=== PATIENT | male | born 1945 | race Caucasian/White ===

== ENCOUNTER 2016-08-28 16:51 | Emergency (ER) | payer BC, MEDICARE ==
[2016-08-28] MEDS ORDERED: MORPHINE SULFATE 4 MG INJ IV ONE (17:15)
[2016-08-28] MEDS ORDERED: Sodium Chloride 0.9% 1000 ML 1,000 ML IV SCH (17:15)
[2016-08-28] MEDS ORDERED: Zofran 4 MG/2 ML VIAL IV ONE (17:15)
--- NOTE | 2016-08-28 17:21 | ERPHSYRPT ---
- History of Present Illness Time Seen by Provider: 08/28/16 17:05 Historian: patient Exam Limitations: no limitations Patient Subjective Stated Complaint: rt groin pain/ vomiting Triage Nursing Assessment: rt groin pain and 'bulge' for weeks. c/o rt groin bulge bigger since vomiting over the past couple of days. c/o mis abd 'burning' vomiting multiple times today. no fever. no problems with urination. large ' hernia type' area to rt groin Physician History: 70 y/o male with history of colorectal CA comes to the ER with left groin pain for the past 3 weeks. Pt mentions the pain has gotten worst with multiple episodes of nausea and vomiting. Pt also reports the lump in the groin has gotten bigger. Pt describes the pain as sharp, constant, 6/10, with radiation to mid abdomen and pt has not taken any pain meds. Pt denies any fever, chills, diarrhea, constipation or bloody stools. Timing/Duration: week(s) Activities at Onset: none Quality: sharpness Abdominal Pain Onset Location: other (left groin) Pain Radiation: periumbilical Severity of Pain-Max: moderate Severity of Pain-Current: moderate Modifying Factors: Improves With: nothing Associated Symptoms: nausea, vomiting Allergies/Adverse Reactions: Penicillins Allergy (Verified 08/28/16 17:15) Home Medications: Omeprazole 20 MG [Prilosec 20 mg] 20 mg PO HS 04/04/14 [History] Hx Tetanus, Diphtheria Vaccination/Date Given: Yes Hx Influenza Vaccination/Date Given: Yes Hx Pneumococcal Vaccination/Date Given: No Immunizations Up to Date: Yes - Review of Systems Constitutional: No Fever, No Chills Eyes: No Symptoms Ears, Nose, & Throat: No Symptoms Respiratory: No Cough, No Dyspnea Cardiac: No Chest Pain, No Edema, No Syncope Abdominal/Gastrointestinal: Abdominal Pain, Nausea, Vomiting, No Diarrhea Genitourinary Symptoms: No Dysuria Musculoskeletal: No Back Pain, No Neck Pain Skin: No Rash Neurological: No Dizziness, No Focal Weakness, No Sensory Changes Psychological: No Symptoms Endocrine: No Symptoms All Other Systems: Reviewed and Negative - Past Medical History Pertinent Past Medical History: Yes Neurological History: Stroke, Other ENT History: Other Cardiac History: Hypertension Respiratory History: Bronchitis, COPD, Pneumonia Endocrine Medical History: No Pertinent History Musculoskeletal History: Arthritis GI Medical History: Colorectal Cancer, GERD, Polyps History: No Pertinent History Psycho-Social History: Anxiety Male Reproductive Disorders: No Pertinent History Other Medical History: [place] Palsy - Past Surgical History Past Surgical History: Yes Neuro Surgical History: No Pertinent History Cardiac: No Pertinent History Respiratory: Other Gastrointestinal: No Pertinent History Genitourinary: No Pertinent History Musculoskeletal: No Pertinent History Male Surgical History: No Pertinent History Other Surgical History: Pt unable to answer (sleeping) - Social History Smoking Status: Former smoker Exposure to second hand smoke: No Drug Use: none Patient Lives Alone: No - Nursing Vital Signs Nursing Vital Signs: Initial Vital Signs Temperature 98.0 F Temperature Source Oral Pulse Rate 75 Respiratory Rate 16 Blood Pressure 135/81 Pain Intensity 1 - Physical Exam General Appearance: no apparent distress, alert Eye Exam: PERRL/EOMI, eyes nml inspection Ears, Nose, Throat Exam: normal ENT inspection, pharynx normal, moist mucous membranes Neck Exam: normal inspection, non-tender, supple, full range of motion Respiratory Exam: normal breath sounds, lungs clear, No respiratory distress Cardiovascular Exam: regular rate/rhythm, normal heart sounds Gastrointestinal/Abdomen Exam: soft, normal bowel sounds, tenderness, No mass Male Genitalia Exam: other (left groin lump with tenderness and reducible hernia ), No testicular tenderness Back Exam: normal inspection, normal range of motion, No CVA tenderness, No vertebral tenderness Extremity Exam: normal inspection, normal range of motion, pelvis stable Neurologic Exam: alert, oriented x 3, cooperative, normal mood/affect, nml cerebellar function, sensation nml, No motor deficits Skin Exam: normal color, warm, dry SpO2: 97 Oxygen Delivery: Room Air Ordered Tests: Active Orders 24 hr Category Date Time Status IV Insertion STAT Care 08/28/16 17:14 Active NPO (ED) STAT Care 08/28/16 17:15 Active ABDOMEN AND PELVIS W&WO CONTRA [CT] Stat Exams 08/28/16 17:13 Taken CBCD [CBC W DIFF] Stat Lab 08/28/16 17:13 Completed CMP Stat Lab 08/28/16 17:20 Completed Lactic Acid Stat Lab 08/28/16 17:35 Completed PT INR [PROTIME WITH INR] Stat Lab 08/28/16 17:20 Completed PTT Stat Lab 08/28/16 17:20 Completed Medication Summary Generic Name Dose Route Start Last Admin Trade Name Freq PRN Reason Stop Dose Admin Sodium Chloride 1,000 mls @ 200 mls/hr 08/28/16 17:15 08/28/16 17:40 Sodium Chloride 0.9% 1000 Ml IV 09/27/16 17:14 200 mls/hr .Q5H HARJIT Administration Discontinued Medications Generic Name Dose Route Start Last Admin Trade Name Freq PRN Reason Stop Dose Admin Albuterol/Ipratropium Confirm 08/28/16 17:41 Duoneb 0.5-3 Mg/3 Ml Neb Administered 08/28/16 17:42 Dose 3 ml IH .STK-MED ONE Sodium Chloride Confirm 08/28/16 17:36 Sodium Chloride 0.9% 1000 Ml Administered 08/28/16 17:37 Dose 1,000 mls @ ud .ROUTE .STK-MED ONE Morphine Sulfate 4 mg 08/28/16 17:15 08/28/16 17:39 Morphine Sulfate 4 Mg Inj IV 08/28/16 17:16 4 mg STAT ONE Administration Morphine Sulfate Confirm 08/28/16 17:36 Morphine Sulfate 4 Mg Inj Administered 08/28/16 17:37 Dose 4 mg .ROUTE .STK-MED ONE Ondansetron HCl 4 mg 08/28/16 17:15 08/28/16 17:39 Zofran 4 Mg/2 Ml Vial IV 08/28/16 17:16 4 mg STAT ONE Administration Ondansetron HCl Confirm 08/28/16 17:36 Zofran 4 Mg/2 Ml Vial Administered 08/28/16 17:37 Dose 4 mg .ROUTE .STK-MED ONE Lab/Rad Data: Laboratory Result Diagrams 08/28/16 17:13 08/28/16 17:20 Laboratory Results 08/28/16 08/28/16 08/28/16 Range/Units 17:35 17:20 17:20 WBC (4.0-10.5) K/mm3 RBC (4.1-5.6) M/mm3 Hgb (12.5-18.0) gm/dl Hct (42-50) % MCV (78-100) fl MCH (26-32) pg MCHC (32-36) g/dl RDW (11.5-14.0) % Plt Count (150-450) K/mm3 MPV (6-9.5) fl Gran % (36.0-66.0) % Lymphocytes % (24.0-44.0) % Monocytes % (0.0-12.0) % Eosinophils % (0.00-5.0) % Basophils % (0.0-0.4) % Basophils # (0-0.4) INR 0.94 (0.8-3.0) PTT 30.7 (24.1-36.1) SECONDS Sodium 142 (136-145) mEq/L Potassium 3.8 (3.5-5.1) mEq/L Chloride 104 (98-107) mEq/L Carbon Dioxide 27.9 (21-32) mEq/L Anion Gap 14.3 (5-15) MEQ/L BUN 18 (9-20) mg/dL Creatinine 1.35 H (0.55-1.30) mg/dl Estimated GFR 55 ML/MIN Glucose 100 (70-110) MG/DL Lactic Acid 1.3 (0.4-2.0) Calcium 10.4 H (8.5-10.1) mg/dL Total Bilirubin 0.7 (0.2-1.0) mg/dL AST 22 (15-37) U/L ALT 25 (12-78) U/L Alkaline Phosphatase 90 (46-116) U/L Serum Total Protein 7.2 (6.4-8.2) gm/dL Albumin 3.7 (3.4-5.0) g/dL 08/28/16 Range/Units 17:13 WBC 9.5 (4.0-10.5) K/mm3 RBC 5.09 (4.1-5.6) M/mm3 Hgb 15.0 (12.5-18.0) gm/dl Hct 45.2 (42-50) % MCV 88.8 (78-100) fl MCH 29.5 (26-32) pg MCHC 33.2 (32-36) g/dl RDW 14.3 H (11.5-14.0) % Plt Count 289 (150-450) K/mm3 MPV 10.2 H (6-9.5) fl Gran % 75.1 H (36.0-66.0) % Lymphocytes % 13.6 L (24.0-44.0) % Monocytes % 8.4 (0.0-12.0) % Eosinophils % 1.2 (0.00-5.0) % Basophils % 1.7 (0.0-0.4) % Basophils # 0.16 (0-0.4) INR (0.8-3.0) PTT (24.1-36.1) SECONDS Sodium (136-145) mEq/L Potassium (3.5-5.1) mEq/L Chloride (98-107) mEq/L Carbon Dioxide (21-32) mEq/L Anion Gap (5-15) MEQ/L BUN (9-20) mg/dL Creatinine (0.55-1.30) mg/dl Estimated GFR ML/MIN Glucose (70-110) MG/DL Lactic Acid (0.4-2.0) Calcium (8.5-10.1) mg/dL Total Bilirubin (0.2-1.0) mg/dL AST (15-37) U/L ALT (12-78) U/L Alkaline Phosphatase (46-116) U/L Serum Total Protein (6.4-8.2) gm/dL Albumin (3.4-5.0) g/dL - Progress Progress: improved Progress Note: 08/28/16 21:[address] scan abd/pelvis shows a left inguinal hernia but no incarceration. Pt feels better after receiving morphine. The rest of the labs are within normal limits. Pt will be referred to general surgery for elective surgery - Departure Time of Disposition: 21:06 Departure Disposition: Home Clinical Impression: Inguinal hernia Condition: Stable Critical Care Time: No Referrals: AMA VELAZQUEZ [Primary Care Provider] - ESTELLE JEWELL [ACTIVE STAFF] - Instructions: Groin Hernia Additional Instructions: Call Dr Jewell on Wednesday to set up an appointment for elective surgery. Return to the ER if you should have worsening abdominal pain, nausea, vomiting, fever or chills. Prescriptions: Oxycodone HCl/Acetaminophen [Percocet 5-325 mg Tablet] 1 each PO Q6H PRN PRN # 15 tablet PRN Reason: Pain
[2016-08-28] MEDS ORDERED: Zofran 4 MG/2 ML VIAL ONE (17:36)
[2016-08-28] MEDS ORDERED: Sodium Chloride 0.9% 1000 ML 1,000 ML ONE (17:36)
[2016-08-28] MEDS ORDERED: MORPHINE SULFATE 4 MG INJ ONE (17:36)
[2016-08-28 17:38] LABS: BASOPHIL % 1.7 % (0.0-0.4); Eosinophil % 1.2 % (0.00-5.0); Granulocytes % 75.1 % (36.0-66.0); Lymphocytes % 13.6 % (24.0-44.0); Mean Cell Volume 88.8 fl (78-100); Mean Corpuscular Hemoglobin 29.5 pg (26-32); Mean Platelet Volume 10.2 fl (6-9.5); Monocytes % 8.4 % (0.0-12.0); Platelet Count 289 K/mm3 (150-450); Red Blood Count 5.09 M/mm3 (4.1-5.6); Red Cell Distribution Width 14.3 % (11.5-14.0); White Blood Count 9.5 K/mm3 (4.0-10.5)
[2016-08-28] MEDS ORDERED: DUONEB 0.5-3 MG/3 ml Neb IH ONE (17:41)
[2016-08-28 17:58] LABS: INR 0.94 (0.8-3.0); PROTIME 10.6 SECONDS (8.83-12.87)
[2016-08-28 18:00] LABS: PTT 30.7 SECONDS (24.1-36.1)
[2016-08-28 18:05] LABS: ALBUMIN 3.7 g/dL (3.4-5.0); ANION GAP 14.3 MEQ/L (5-15); BILIRUBIN,TOTAL 0.7 mg/dL (0.2-1.0); Carbon Dioxide 27.9 mEq/L (21-32); Potassium 3.8 mEq/L (3.5-5.1); Total Protein 7.2 gm/dL (6.4-8.2)
[2016-08-28 21:13] VITALS: BP 144/85; PULSE 82; O2SAT 91
--- NOTE | 2016-08-29 08:36 | XRAY ---
Indication: Abdomen and groin pain. Vomiting. History of inguinal hernia. Multiple contiguous axial images obtained through the abdomen and pelvis prior to and following 80 cc Isovue 370 contrast. Gastrografin oral contrast also given. Comparison: None Lung bases demonstrates moderate pulmonary emphysema with scattered fibrosis/scarring bilaterally. Small focus of infiltrate/atelectasis in the left posterior gutter. No effusion. Heart is not enlarged. Moderate-sized hiatal hernia with partial intrathoracic stomach. Noncontrasted images demonstrates mild aortoiliac calcifications without AAA. Nonobstructing punctate bilateral renal calculi. Contrasted stomach and bowel loops appear nonobstructed. Mild fluid distended small and large bowel loops including rectum with some fluid leveling, ileus versus enterocolitis. No free fluid/air. Small fatty left inguinal hernia. Postcontrast images demonstrate normal visceral enhancement and renal excretion. Bilateral renal cysts, largest left mid parapelvic measuring 2.4 cm. Remaining liver, gallbladder, pancreas, spleen, adrenal glands, kidneys, ureters, and bladder appear unremarkable. No pathologic retroperitoneal lymphadenopathy. Osseous structures intact with mild degenerative changes throughout the spine. Impression: 1. Fluid distended small and large bowel loops with fluid leveling, ileus versus enterocolitis. 2. Hiatal hernia with partial intrathoracic stomach. Small fatty left inguinal hernia. 3. Nonobstructing bilateral renal microcalculi and bilateral renal cysts. 4. Pulmonary emphysema and left lung base infiltrate/atelectasis. Comment: Preliminary interpretation was made by [facility]. No discrepancy. CTDI is 9.59
== END 2016-08-28 21:20 | disposition home or self-care (01) ==
LOC: ED 16:51
DX: K40.90 Unilateral inguinal hernia, without obstruction or gangrene, not specified as recurrent (principal); R11.2 Nausea with vomiting, unspecified; R10.9 Unspecified abdominal pain
CPT/HCPCS: 36000; 36415; 74178; 80053; 83605; 85025; 85610; 85730; 96360; 96361; 96374; 96375; 99283; J2270; J2405

== ENCOUNTER 2017-01-28 08:59 | Day surgery (SDC) | payer BC, MEDICARE ==
[~2017-01-28 08:59] MED LIST: DIPRIVAN 200 MG/20 ML IV ONE; KEFZOL 1 GM ONE; Lactated Ringers 1,000 ML IV ONE; PHENYLEPHRINE HCL IV ONE; Quelicin Fliptop 200 MG/10 ML IV ONE; SUBLIMAZE 250 MCG/5 ML IV ONE; Sensorcaine 0.25% 10 ML ONE; Versed 2 MG/2 ML Injection IV ONE; Zemuron 100 MG/10 ML IV ONE
[2017-01-28] MEDS ORDERED: CLINDAMYCIN-D5W 900 MG/50 ML*** 900 MG/50 ML BAG IV STA (09:14)
[2017-01-28] MEDS ORDERED: Levofloxacin 500MG/100ML D5W 500 MG/100 ML BAG IV STA (09:15)
[2017-01-28] MEDS ORDERED: Lactated Ringers 1,000 ML IV SCH (09:30)
[2017-01-28] MEDS ORDERED: Xopenex 1.25 MG/0.5 ML UD NEBULE IH ONE ×4 (09:45→12:14)
[2017-01-28] MEDS ORDERED: Sodium Chloride 3 ML UD NEBULES IH ONE ×2 (09:46→12:14)
[2017-01-28] MEDS ORDERED: Levofloxacin 500MG/100ML D5W 500 MG/100 ML BAG IV ONE (10:53)
[2017-01-28] MEDS ORDERED: NORCO 5/325 MG PO PRN (13:17)
[2017-01-28 14:26] VITALS: O2SAT 97
[2017-01-28 14:30] VITALS: BP 150/73; PULSE 82
--- NOTE | 2017-01-29 08:54 | HP ---
DATE: 01/28/17 ADMISSION DIAGNOSIS: 1. LEFT INGUINAL HERNIA, SYMPTOMATIC. ANTICIPATED PROCEDURE: 1. Repair. HISTORY OF PRESENT ILLNESS: Patient has moderate sized symptomatic left inguinal hernia. PAST MEDICAL HISTORY: ALLERGIES: NONE. CURRENT MEDICATIONS: None. SURGERIES: Lung surgery. REVIEW OF SYSTEMS: Chronic obstructive pulmonary disease. SOCIAL HISTORY: Negative. FAMILY HISTORY: Negative. PHYSICAL EXAMINATION: Vital signs normal. CHEST: Clear. COR: Regular. ABDOMEN: Left inguinal hernia. IMPRESSION: 1. SYMPTOMATIC LEFT INGUINAL HERNIA. PLAN: Repair.
--- NOTE | 2017-01-29 09:16 | OP ---
SURGERY DATE: 01/28/17 SURGERY TIME: 1056 PREOPERATIVE DIAGNOSIS: 1. LEFT INGUINAL HERNIA, SYMPTOMATIC. POSTOPERATIVE DIAGNOSIS: 1. LEFT INGUINAL HERNIA SLIDING WITH COLON AND INCARCERATED OMENTUM. PROCEDURE: 1. Left inguinal herniorrhaphy primary repair. SURGEON: Demetri Montano M.D. ANESTHESIA: General. COMPLICATIONS: None. CONDITION: Stable. INDICATION: Patient with symptomatic inguinal hernia. Fairly elderly and fairly thin. OPERATIVE PROCEDURE: He was marked preoperatively. He was taken to surgery. Routine prep and drape. Kidney rest was placed and elevated. 0.25% Marcaine. Curvilinear incision. Quite limited. External oblique opened. There was incarcerated indirect hernia sac present. It clearly had some fat in it. It was mobilized. The floor was satisfactory. Direct component totally satisfactory. The sac was opened. It was 2 1/2" long and the fat was mobilized. About an inch up in the sac, the fat was stuck and then a racing stripe was seen, transverse colon was seen. This was epiploic colonic fat and it was a sliding hernia. It was taken as high as possible and it was highly suture ligated just above this and then reduced. The internal ring was tightened down with sutures from above and sutures from below, sutures of #0 Prolene. The cord was nailed down to 1 clamp tight. No mesh was placed. The repair seemed solid. External oblique closed with 0 Vicryl. Edvin's approximated with 3-0 Vicryl. Skin closed with 4-0 Vicryl. Steri-strips applied. Sterile dressing applied. Patient tolerated the procedure satisfactory.
== END 2017-01-28 14:05 | disposition home or self-care (01) ==
LOC: SDC 08:59
PROVIDERS: ATTEND Surgery
PROC: 0YQ60ZZ Repair Left Inguinal Region, Open Approach (ICD-10-PCS; principal; 2017-01-28)
DX: K40.30 Unilateral inguinal hernia, with obstruction, without gangrene, not specified as recurrent (principal); J44.9 Chronic obstructive pulmonary disease, unspecified; Z79.899 Other long term (current) drug therapy
CPT/HCPCS: 00830; 36415; 94640; 99100; J0330; J0690; J1956; J2250; J2370; J2704; J3010; A9270-GY

== ENCOUNTER 2017-10-13 08:10 | Observation (INO) | payer BC, MEDICARE ==
[2017-10-13] MEDS ORDERED: Pepcid 20 MG VIAL IV ONE ×2 (08:36→08:50)
[2017-10-13] MEDS ORDERED: Sodium Chloride 0.9% 1000 ML 1,000 ML IV STA (08:36)
[2017-10-13] MEDS ORDERED: Zofran 4 MG/2 ML VIAL IV ONE (08:36)
--- NOTE | 2017-10-13 08:36 | ERPHSYRPT ---
- History of Present Illness Time Seen by Provider: 10/13/17 08:32 Source: patient, EMS Exam Limitations: no limitations Physician History: The patient is a 71-year-old male brought in by ambulance from work where he felt weak and unsteady on his feet. Every time he was stand up he would feel a little dizzy and weak. Yesterday he had vomiting and diarrhea. He had watery stools approximately 3 times in our yesterday. He had one loose stool this morning. He has not vomited today. He also has a cough and wheezing for the last 3 weeks. His past medical history is significant for COPD, GERD, stroke, and hypertension. Timing/Duration: yesterday Severity: moderate Modifying Factors: Improves With: nothing Associated Symptoms: nausea, vomiting, abdominal pain, shortness of breath, cough, weakness Allergies/Adverse Reactions: Penicillins Allergy (Verified 01/20/17 08:27) unknown Home Medications: Albuterol 2 mg/5 ml Syrup [Ventolin Syrup 2 mg/5 ml] 1 inh IH Q4HPRN PRN 01/28/17 [History] Omeprazole 20 MG [Prilosec 20 mg] 1 tab PO DAILY PRN 01/28/17 [History] Hx Tetanus, Diphtheria Vaccination/Date Given: Yes Hx Influenza Vaccination/Date Given: Yes Hx Pneumococcal Vaccination/Date Given: Yes - Review of Systems Constitutional: Weakness Eyes: No Symptoms Ears, Nose, & Throat: No Symptoms Respiratory: Cough, Wheezing Cardiac: No Chest Pain, No Edema, No Syncope Abdominal/Gastrointestinal: Abdominal Pain (cramping), Nausea, Vomiting, Diarrhea Genitourinary Symptoms: No Dysuria Musculoskeletal: No Back Pain, No Neck Pain Skin: No Rash Neurological: No Dizziness, No Focal Weakness, No Sensory Changes Psychological: No Symptoms Endocrine: No Symptoms Hematologic/Lymphatic: No Symptoms Immunological/Allergic: No Symptoms All Other Systems: Reviewed and Negative - Past Medical History Pertinent Past Medical History: Yes Neurological History: Stroke, Other ENT History: Other Cardiac History: Hypertension Respiratory History: Bronchitis, COPD, Pneumonia Endocrine Medical History: No Pertinent History Musculoskeletal History: Arthritis GI Medical History: Colorectal Cancer, GERD, Polyps History: No Pertinent History Psycho-Social History: Anxiety Male Reproductive Disorders: No Pertinent History Other Medical History: [place] Palsy - Past Surgical History Past Surgical History: Yes Neuro Surgical History: No Pertinent History Cardiac: No Pertinent History Respiratory: Other Gastrointestinal: No Pertinent History Genitourinary: No Pertinent History Musculoskeletal: No Pertinent History Male Surgical History: No Pertinent History Other Surgical History: collapsed lung 1969's - Social History Smoking Status: Former smoker Exposure to second hand smoke: No Drug Use: none Patient Lives Alone: No - Nursing Vital Signs Nursing Vital Signs: Initial Vital Signs Temperature 97.4 F 10/13/17 08:12 Pulse Rate 98 H 10/13/17 08:12 Respiratory Rate 18 10/13/17 08:12 Blood Pressure 155/81 10/13/17 08:12 O2 Sat by Pulse Oximetry 99 10/13/17 08:12 Pain Scale Pain Intensity 0 - Physical Exam General Appearance: mild distress Eye Exam: PERRL/EOMI, eyes nml inspection Ears, Nose, Throat Exam: normal ENT inspection, TMs normal, pharynx normal, moist mucous membranes Neck Exam: normal inspection, non-tender, supple, full range of motion Respiratory Exam: diminished breath sounds, rhonchi, wheezing Cardiovascular Exam: regular rate/rhythm, normal heart sounds, normal peripheral pulses Gastrointestinal/Abdomen Exam: tenderness (epigastric) Rectal Exam: not done Back Exam: normal inspection, normal range of motion, No CVA tenderness, No vertebral tenderness Extremity Exam: normal inspection, normal range of motion, pelvis stable Neurologic Exam: alert, oriented x 3, cooperative, normal mood/affect, nml cerebellar function, nml station & gait, sensation nml, No motor deficits Skin Exam: normal color, warm, dry, No rash SpO2 Interpretation: normal Oxygen Delivery: Room Air - Course EKG Interpreted by Me: RATE, Left [place] Deviation, 1st degree AV Block, Q-wave ( new Q wave.), ST Elev (V1, V2, V3. Change from comp EKG 02/17/17), Other (new left anterior fascicular block; new left axis deviation.) - Radiology Exams Chest X-ray Interpretation: Reviewed by me, Teleradiologist Report, Negative Abdomen X-ray Interpretation: Reviewed by me, Teleradiologist Report, Negative Ordered Tests: Active Orders 24 hr Category Date Time Status EKG-ER Only STAT Care 10/13/17 08:36 Active IV Insertion STAT Care 10/13/17 08:36 Active CHEST 2 VIEWS (PA AND LAT) Stat Exams 10/13/17 08:37 Completed KUB Stat Exams 10/13/17 08:37 Completed CBC W DIFF Stat Lab 10/13/17 08:15 Completed CMP Stat Lab 10/13/17 08:15 Completed Lactic Acid Stat Lab 10/13/17 08:55 Completed TROPONIN Q3H Lab 10/13/17 08:15 Completed TROPONIN Q3H Lab 10/13/17 11:45 Ordered TROPONIN Q3H Lab 10/13/17 14:45 Ordered TROPONIN Q3H Lab 10/13/17 17:45 Ordered TROPONIN Q3H Lab 10/13/17 20:45 Ordered UA W/RFX UR CULTURE Stat Lab 10/13/17 08:37 Ordered Respiratory Nebulizer STAT RT 10/13/17 08:39 Completed Medication Summary Discontinued Medications Generic Name Dose Route Start Last Admin Trade Name Freq PRN Reason Stop Dose Admin Albuterol/Ipratropium 3 ml 10/13/17 08:38 10/13/17 08:53 Duoneb 0.5-3 Mg/3 Ml Neb IH 10/13/17 08:39 3 ml STAT ONE Administration Albuterol/Ipratropium Confirm 10/13/17 08:47 Duoneb 0.5-3 Mg/3 Ml Neb Administered 10/13/17 08:48 Dose 3 ml IH .STK-MED ONE Famotidine 20 mg 10/13/17 08:36 10/13/17 08:59 Pepcid 20 Mg Vial IV 10/13/17 08:37 20 mg STAT ONE Administration Famotidine Confirm 10/13/17 08:50 Pepcid 20 Mg Vial Administered 10/13/17 08:51 Dose 20 mg IV .STK-MED ONE Sodium Chloride 1,000 mls @ 999 mls/hr 10/13/17 08:36 10/13/17 08:59 Sodium Chloride 0.9% 1000 Ml IV 10/13/17 09:36 999 mls/hr .Q1H1M STA Administration Sodium Chloride Confirm 10/13/17 08:51 Sodium Chloride 0.9% 1000 Ml Administered 10/13/17 08:52 Dose 1,000 mls @ ud .ROUTE .STK-MED ONE Methylprednisolone Sodium Succinate 125 mg 10/13/17 08:38 10/13/17 08:58 Solu-Medrol 125 Mg IV 10/13/17 08:39 125 mg STAT ONE Administration Methylprednisolone Sodium Succinate Confirm 10/13/17 08:51 Solu-Medrol 125 Mg Administered 10/13/17 08:52 Dose 125 mg .ROUTE .STK-MED ONE Ondansetron HCl 4 mg 10/13/17 08:36 10/13/17 08:59 Zofran 4 Mg/2 Ml Vial IV 10/13/17 08:37 4 mg STAT ONE Administration Ondansetron HCl Confirm 10/13/17 08:50 Zofran 4 Mg/2 Ml Vial Administered 10/13/17 08:51 Dose 4 mg .ROUTE .STK-MED ONE Lab/Rad Data: Laboratory Result Diagrams 10/13/17 08:15 10/13/17 08:15 Laboratory Results 10/13/17 10/13/17 10/13/17 Range/Units 08:55 08:52 08:15 WBC (4.0-10.5) K/mm3 RBC (4.1-5.6) M/mm3 Hgb (12.5-18.0) gm/dl Hct (42-50) % MCV (78-100) fl MCH (26-32) pg MCHC (32-36) g/dl RDW (11.5-14.0) % Plt Count (150-450) K/mm3 MPV (6-9.5) fl Gran % (36.0-66.0) % Lymphocytes % (24.0-44.0) % Monocytes % (0.0-12.0) % Eosinophils % (0.00-5.0) % Basophils % (0.0-0.4) % Basophils # (0-0.4) Sodium (136-145) mEq/L Potassium (3.5-5.1) mEq/L Chloride (98-107) mEq/L Carbon Dioxide (21-32) mEq/L Anion Gap (5-15) MEQ/L BUN (9-20) mg/dL Creatinine (0.55-1.30) mg/dl Estimated GFR ML/MIN Glucose (70-110) MG/DL Lactic Acid 1.1 (0.4-2.0) Calcium (8.5-10.1) mg/dL Total Bilirubin (0.2-1.0) mg/dL AST (15-37) U/L ALT (12-78) U/L Alkaline Phosphatase (46-116) U/L Troponin I < 0.017 (0.000-0.056) ng/ml Serum Total Protein (6.4-8.2) gm/dL Albumin (3.4-5.0) g/dL Influenza Type A Ag NEGATIVE (NEGATIVE) Influenza Type B Ag NEGATIVE (NEGATIVE) RSV (PCR) NEGATIVE (Negative) 10/13/17 10/13/17 Range/Units 08:15 08:15 WBC 7.6 (4.0-10.5) K/mm3 RBC 5.47 (4.1-5.6) M/mm3 Hgb 16.3 (12.5-18.0) gm/dl Hct 48.6 (42-50) % MCV 88.8 (78-100) fl MCH 29.8 (26-32) pg MCHC 33.5 (32-36) g/dl RDW 14.7 H (11.5-14.0) % Plt Count 299 (150-450) K/mm3 MPV 11.2 H (6-9.5) fl Gran % 61.3 (36.0-66.0) % Lymphocytes % 21.2 L (24.0-44.0) % Monocytes % 14.7 H (0.0-12.0) % Eosinophils % 1.7 (0.00-5.0) % Basophils % 1.1 (0.0-0.4) % Basophils # 0.08 (0-0.4) Sodium 138 (136-145) mEq/L Potassium 4.2 (3.5-5.1) mEq/L Chloride 102 (98-107) mEq/L Carbon Dioxide 24.0 (21-32) mEq/L Anion Gap 15.8 H (5-15) MEQ/L BUN 15 (9-20) mg/dL Creatinine 1.81 H (0.55-1.30) mg/dl Estimated GFR 39 ML/MIN Glucose 150 H (70-110) MG/DL Lactic Acid (0.4-2.0) Calcium 9.2 (8.5-10.1) mg/dL Total Bilirubin 0.30 (0.2-1.0) mg/dL AST 23 (15-37) U/L ALT 20 (12-78) U/L Alkaline Phosphatase 85 (46-116) U/L Troponin I (0.000-0.056) ng/ml Serum Total Protein 7.5 (6.4-8.2) gm/dL Albumin 3.6 (3.4-5.0) g/dL Influenza Type A Ag (NEGATIVE) Influenza Type B Ag (NEGATIVE) RSV (PCR) (Negative) - Progress Progress: improved Progress Note: 10/13/17 09:38 I discussed pt and pt's EKGs with Dr Tapia. New EKG shows probable silent NE during time interval between old EKG 02/17/2017 and new EKG 11/10/2016. Need to admit and monitor, do repeat troponins, and EKG. Follow up as outpatient with Dr Tapia. Discussed with : Aleksander Will see patient in: hospital (observation) Counseled pt/family regarding: lab results, diagnosis, rad results - Departure Time of Disposition: 10:33 Departure Disposition: Observation (per Dr Armijo) Clinical Impression: Gastroenteritis, Dehydration, ST segment changes on electrocardiogram Condition: Stable Critical Care Time: No Referrals: AMA VELAZQUEZ [Primary Care Provider] -
[2017-10-13] MEDS ORDERED: solu-MEDROL 125 MG IV ONE (08:38)
[2017-10-13] MEDS ORDERED: DUONEB 0.5-3 MG/3 ml Neb IH ONE ×2 (08:38→08:47)
[2017-10-13] MEDS ORDERED: Zofran 4 MG/2 ML VIAL ONE (08:50)
[2017-10-13] MEDS ORDERED: solu-MEDROL 125 MG ONE (08:51)
[2017-10-13] MEDS ORDERED: Sodium Chloride 0.9% 1000 ML 1,000 ML ONE (08:51)
[2017-10-13 08:59] LABS: ALBUMIN 3.6 g/dL (3.4-5.0); ANION GAP 15.8 MEQ/L (5-15); BILIRUBIN,TOTAL 0.3 mg/dL (0.2-1.0); Calcium 9.2 mg/dL (8.5-10.1); Creatinine 1 1.81 mg/dl (0.55-1.30); Potassium 4.2 mEq/L (3.5-5.1); Total Protein 7.5 gm/dL (6.4-8.2)
[2017-10-13 09:02] LABS: BASOPHIL % 1.1 % (0.0-0.4); Basophil (Absolute #) 0.08 (0-0.4); Eosinophil % 1.7 % (0.00-5.0); Eosinophil (Absolute #) 0.13 (0-0.5); Granulocyte Absolute (ANC) 4.67 (1.4-6.9); Granulocytes % 61.3 % (36.0-66.0); Hematocrit 48.6 % (42-50); Hemoglobin 16.3 gm/dl (12.5-18.0); Lymphocyte (Absolute #) 1.61 (1.0-4.6); Lymphocytes % 21.2 % (24.0-44.0); Mean Cell Volume 88.8 fl (78-100); Mean Corpuscular Hemoglobin 29.8 pg (26-32); Mean Corpuscular Hgb Concent. 33.5 g/dl (32-36); Mean Platelet Volume 11.2 fl (6-9.5); Monocyte (Absolute #) 1.12 (0.0-1.3); Monocytes % 14.7 % (0.0-12.0); Platelet Count 299 K/mm3 (150-450); Red Blood Count 5.47 M/mm3 (4.1-5.6); Red Cell Distribution Width 14.7 % (11.5-14.0); White Blood Count 7.6 K/mm3 (4.0-10.5)
[2017-10-13 09:29] LABS: INFLUENZA A NEGATIVE (NEGATIVE); INFLUENZA B NEGATIVE (NEGATIVE); RESPIRATORY SYNCTIAL VIRUS NEGATIVE (Negative)
--- NOTE | 2017-10-13 09:37 | XRAY ---
Indication: Cough, nausea, vomiting, and diarrhea. Comparison: January 31, 2015. PA/lateral chest again hyperinflated with a few incidental calcified granulomas and new left base fibrosis/scarring. No focal infiltrate, consolidation, or large effusion. Heart is not enlarged. Bony thorax intact again with mild degenerative changes. Impression: Nonacute hyperinflated chest with chronic features.
--- NOTE | 2017-10-13 09:39 | XRAY ---
Indication: Cough, nausea, vomiting, and diarrhea. Comparison: None KUB nonacute and nonobstructed with mild scattered vascular calcifications. Solid organs unremarkable. Osseous structures intact with mild multilevel degenerative spondylosis. Impression: Negative KUB.
[2017-10-13] MEDS ORDERED: BABY ASPIRIN 81 MG CHEW PO ONE (10:35)
[2017-10-13] MEDS ORDERED: BABY ASPIRIN 81 MG CHEW ONE (10:38)
[2017-10-13] MEDS ORDERED: TYLENOL 325 MG PO PRN (11:28)
[2017-10-13] MEDS ORDERED: Senokot-S Tablet PO PRN (11:28)
[2017-10-13] MEDS ORDERED: MAALOX ES 30 ML UNIT DOSE PO PRN (11:28)
[2017-10-13] MEDS ORDERED: MILK OF MAGNESIA 30 ML PO PRN (11:28)
[2017-10-13] MEDS ORDERED: Zofran 4 MG/2 ML VIAL IV PRN (11:28)
[2017-10-13] MEDS: PROVENTIL 2.5 MG/3 ML NEB IH SCH ×4 (11:50→22:06)
[2017-10-13] MEDS: solu-MEDROL 125 MG IV SCH ×3 (12:10→23:50)
[2017-10-13] MEDS ORDERED: VITAMIN B-1 100 MG PO ONE (12:55)
[2017-10-13] MEDS ORDERED: PROVENTIL 2.5 MG/3 ML NEB IH SCH (13:00)
[2017-10-13] MEDS ORDERED: DUONEB 0.5-3 MG/3 ml Neb IH SCH (13:00)
[2017-10-13] MEDS: Dextrose 5% -0.45 NaCl 1000 ML 1,000 ML IV SCH (13:29)
--- NOTE | 2017-10-13 13:32 | HP ---
HISTORY OF PRESENT ILLNESS: This is a 72 year-old patient of Dr. Madsen's who presented to the emergency department by ambulance today. He was brought from [facility] where he works. The patient reports that he first started feeling bad yesterday around 0400 hours and had diarrhea, vomiting, abdominal cramping. He went to work yesterday but then had to come home. Today, he was at work and felt dizzy. 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 He denies that the room was spinning but just felt like he was dizzy. They had him lay down at work and called the ambulance to bring him to the emergency department for further evaluation. He reports he did have diarrhea early in the morning and took some Imodium for this. He denies any blood in his stool. He has not had any sick contacts with diarrhea. He has city water at home. He also reports he had some cough, congestion and yellow thick mucus that he coughed up. REVIEW OF SYSTEMS: He denies any chest pain. He reports a little bit of a headache. He had some neck pain he reports and right ear pain. He denies dysuria. He reports that he had a cough worse at night for months. He denies any fevers. No lower extremity edema. He reports that he used to weigh 145 pounds and now weighs 128 pounds. On review of his old chart he was 61.9 kg in 2015 and is now 52.2 kg. He reports a decreased appetite and some stomach pain. PAST MEDICAL HISTORY: Chronic obstructive pulmonary disease, history of small stroke. His reports the last one approximately a year ago. No history of coronary artery disease but his EKG today showed changes consistent with an old myocardial infarction. PAST SURGICAL HISTORY: Groin surgery. Blood clot removed from around his left lung. He had colonoscopy in [address] Madsen. MEDICATIONS: Albuterol 1 puff every four hours as needed, aspirin 81 mg p.o. daily, Symbicort 2 puffs b.i.d., multivitamin 1 tablet daily, prednisolone 1 drop to his left eye four times a day. ALLERGIES: NKDA. SOCIAL HISTORY: He is and lives with his . He has worked at [employer] for ten years. They state his son also lives at home with them. He reports he quit chewing or smoking tobacco in 2001. He reports he has drank on an almost daily basis but can stop for a couple of days, sometimes he drinks he states only two to three beers but up to 7 to 8 beers per day. He denies any history of alcohol withdrawal. PHYSICAL EXAMINATION: VITAL SIGNS: Temperature current 97.7F, temperature max 97.7F, heart rate 78 to 99, respiratory rate 16 to 20, blood pressure 133 to 155 over 63 to 81 and currently 133/63, weight 52.2 kg. Oxygen saturation 93 to 99% on room air. GENERAL: The patient is a pleasant talkative man sitting up in bed in no acute distress. He is hard of hearing and wears hearing aids. His is beside him at the bedside and also helps answer the questions. CVS: He has a regular rate and rhythm. No murmurs, gallops or rubs are appreciated. CHEST: Equal breath sounds and few scattered wheezes. No rhonchi. No crackles. ABDOMEN: Hyperactive bowel sounds, soft, nontender, nondistended. EXTREMITIES: No clubbing, cyanosis or edema. SKIN: Warm, dry and intact. LABORATORY DATA AND TESTS: His creatinine 1.81 and his baseline was 1.12 on 01/05/2017. Troponin was negative. Influenza A, B and respiratory syncytial virus were all negative. ABG was within normal limits. EKG sinus rhythm with heart rate 101 with Q-waves in V2, V3, V1 that are new when compared to a previous EKG from 02/17/2017. He also has nonspecific T-wave changes. KUB was read as negative. Please see the radiologist report for full details. Chest x-ray was read as nonacute hyperinflated chest with chronic features. Please see the radiologist report for full details. ASSESSMENT AND PLAN: 1) DEHYDRATION WITH DIZZINESS: Will start him on some gentle IV fluids D5 half normal saline at 60 ml/hour and allow him to take diet as well. Will plan to recheck his BMP in the morning. 2) ACUTE RENAL FAILURE: This may be due to the dehydration. Again, will recheck his creatinine in the morning. 3) CHRONIC OBSTRUCTIVE PULMONARY DISEASE EXACERBATION: He has been started on IV steroids, will hold off on antibiotics as he is already having diarrhea and diarrhea is often a side effect of antibiotics. Will continue with oxygen as needed. RT consult and breathing treatment. 4) DIARRHEA: Will continue to monitor. 5) WEIGHT LOSS: This will be worked up as an outpatient with his primary care doctor. 6) ALCOHOL ABUSE: This may be contributing to the patient's poor nutritional status and weight loss. 7) DEEP VENOUS THROMBOSIS PROPHYLAXIS: Will start him on Lovenox and RAFA hose.
[2017-10-13] MEDS: ENOXAPARIN SODIUM SQ SCH (15:12)
[2017-10-13] MEDS: PRED-FORTE 1% OPHTHALMIC OP SCH ×2 (17:38→21:28)
[2017-10-13] MEDS: PATIENT OWN MEDICATION IH SCH (17:49)
[2017-10-14] MEDS: PROVENTIL 2.5 MG/3 ML NEB IH SCH ×3 (02:04→09:39)
[2017-10-14] MEDS: PATIENT OWN MEDICATION IH SCH (05:00)
[2017-10-14] MEDS: solu-MEDROL 125 MG IV SCH (05:45)
[2017-10-14] MEDS: Dextrose 5% -0.45 NaCl 1000 ML 1,000 ML IV SCH (05:59)
[2017-10-14 06:45] LABS: ANION GAP 16.7 MEQ/L (5-15); BLOOD UREA NITROGEN 20 mg/dL (9-20); CHLORIDE 103 mEq/L (98-107); Calcium 8.4 mg/dL (8.5-10.1); Creatinine 1 1.17 mg/dl (0.55-1.30); Glucose 169 MG/DL (70-110); Potassium 4.6 mEq/L (3.5-5.1); SODIUM 137 mEq/L (136-145)
[2017-10-14 07:08] LABS: Risk Ratio 1.7
[2017-10-14 08:01] VITALS: BP 128/58
[2017-10-14] MEDS: ENOXAPARIN SODIUM SQ SCH (08:29)
[2017-10-14] MEDS: PRED-FORTE 1% OPHTHALMIC OP SCH (08:31)
[2017-10-14 09:43] VITALS: PULSE 85; O2SAT 97
[2017-10-14] MEDS ORDERED: NON-FORMULARY ITEM (Multivitamin [Multivitamins] 1 EACH) PO SCH (10:00)
[2017-10-14] MEDS ORDERED: Ecotrin 325 MG PO SCH (10:00)
[2017-10-14] MEDS ORDERED: VITAMIN B-1 100 MG PO SCH (10:00)
[2017-10-14] MEDS ORDERED: THERAGRAN MULTIVITAMIN PO SCH (10:00)
== END 2017-10-14 10:52 | disposition home or self-care (01) ==
LOC: ED 08:10 → MED SURG 11:20
PROVIDERS: ADMIT Internal Medicine; ATTEND Family Medicine
DX: E86.0 Dehydration (principal); J44.1 Chronic obstructive pulmonary disease with (acute) exacerbation; N17.9 Acute kidney failure, unspecified; R19.7 Diarrhea, unspecified; R63.4 Abnormal weight loss; F10.10 Alcohol abuse, uncomplicated
CPT/HCPCS: 36000; 36415; 71046; 74018; 80048; 80053; 80061; 83036; 83605; 83721; 84484; 85025; 87631; 93005; 93268; 94150; 94640; 94760; 96360; 96374; 96375; 99285; G0378; J1650; J2405; J2930; A9270-GY

== ENCOUNTER 2017-11-19 20:42 | Emergency (ER) | payer BC, MEDICARE ==
[2017-11-19] MEDS ORDERED: BABY ASPIRIN 81 MG CHEW PO ONE (20:50)
[2017-11-19] MEDS ORDERED: Sodium Chloride 0.9% 1000 ML 1,000 ML IV STA ×3 (20:50→23:28)
[2017-11-19] MEDS ORDERED: Nitrostat 0.4 MG (ED) SL ONE (20:50)
[2017-11-19] MEDS ORDERED: Sodium Chloride 0.9% 1000 ML 1,000 ML ONE ×3 (20:55→23:48)
--- NOTE | 2017-11-19 20:57 | ERPHSYRPT ---
- History of Present Illness Time Seen by Provider: 11/19/17 20:42 Source: patient Exam Limitations: no limitations Physician History: FOR THE PAST 3 WEEKS PT HAS HAD LOWER MID ANTERIOR CHEST PAIN RADIATING TO THE MID BACK; FOR THE PAST 2 WEEKS SHORTNESS OF AIR WORSE IN THE PAST 12 HOURS WITH DIAPHORESIS AND CHILLS. PT DENIES ABDOMINAL PAIN, VOMITING, RASH. Allergies/Adverse Reactions: No Known Drug Allergies Allergy (Unverified 10/13/17 12:22) Home Medications: Albuterol 2 mg/5 ml Syrup [Ventolin Syrup 2 mg/5 ml] 1 neb IH Q4HPRN PRN 01/28/17 [History] Multivitamin [Multivitamins] 1 each PO DAILY 10/13/17 [History] Albuterol 8 gm Mdi Hfa [Ventolin Hfa MDI] 2 puffs IH Q4H PRN PRN 11/19/17 [History] Loratadine 10 mg [Claritin 10 mg] 10 mg PO DAILY 11/19/17 [History] Montelukast Sodium 10 mg [Singulair 10 MG] 10 mg PO DAILY 11/19/17 [History] Omeprazole [Prilosec] 40 mg PO DAILY 11/19/17 [History] Prednisone 20 mg [Deltasone 20 mg] 20 mg PO DAILY 11/19/17 [History] Hx Tetanus, Diphtheria Vaccination/Date Given: Yes Hx Influenza Vaccination/Date Given: Yes Hx Pneumococcal Vaccination/Date Given: Yes - Review of Systems Constitutional: Chills Respiratory: Dyspnea Cardiac: Chest Pain Abdominal/Gastrointestinal: No Abdominal Pain, No Vomiting Musculoskeletal: Back Pain Skin: No Rash Endocrine: Excessive Sweating All Other Systems: Reviewed and Negative - Past Medical History Pertinent Past Medical History: Yes Neurological History: Stroke, Other ENT History: Other Cardiac History: Hypertension Respiratory History: Bronchitis, COPD, Pneumonia Endocrine Medical History: No Pertinent History Musculoskeletal History: Arthritis GI Medical History: Colorectal Cancer, GERD, Polyps History: No Pertinent History Psycho-Social History: Anxiety Male Reproductive Disorders: No Pertinent History Other Medical History: [place] Palsy - Past Surgical History Past Surgical History: Yes Neuro Surgical History: No Pertinent History Cardiac: No Pertinent History Respiratory: Other Gastrointestinal: Hernia Repair Genitourinary: No Pertinent History Musculoskeletal: No Pertinent History Male Surgical History: No Pertinent History Other Surgical History: collapsed lung 1970's - Social History Smoking Status: Former smoker Exposure to second hand smoke: No Drug Use: none Patient Lives Alone: No - Nursing Vital Signs Nursing Vital Signs: Initial Vital Signs Pulse Rate 138 H 11/19/17 20:47 Respiratory Rate 28 H 11/19/17 20:47 Blood Pressure 177/106 11/19/17 20:47 O2 Sat by Pulse Oximetry 88 L 11/19/17 20:47 Pain Scale Pain Intensity 0 - Physical Exam General Appearance: alert Eye Exam: PERRL/EOMI Ears, Nose, Throat Exam: dry mucous membranes Neck Exam: normal inspection Respiratory Exam: respiratory distress, airway intact, diminished breath sounds , accessory muscle use, wheezing Cardiovascular Exam: tachycardia Gastrointestinal/Abdomen Exam: soft, normal bowel sounds Back Exam: normal range of motion Extremity Exam: swelling (+1 ANKLE EDEMA BILATERALLY) Neurologic Exam: alert, cooperative Skin Exam: warm, dry - Course Nursing assessment & vital signs reviewed: Yes EKG Interpreted by Me: RATE ([id number]), Sinus Tach, Left [place] Deviation, Non- specific ST Changes - Radiology Exams Chest X-ray Interpretation: Interpreted by me (PNEUMONIA) - CT Exams Chest CT Interpretation: Tele-radiologist Report (NO EVIDENCE OF PULMONARY EMBOLISM; HIATAL HERNIA; THERE IS BIBASILAR AIRSPACE DISEASE. CLINICAL CORRELATION FOR PNEUMONIA IS RECOMMENDED.) Ordered Tests: Active Orders 24 hr Category Date Time Status Supervisor Solder Making STAT Care 11/19/17 20:51 Active EKG-ER Only STAT Care 11/19/17 20:50 Active EKG-ER Only STAT Care 11/20/17 01:21 Active IV Insertion STAT Care 11/19/17 20:50 Active Oxygen-ED Only NASAL CANNULA 2 lpm Care 11/19/17 20:50 Active Pulse Oximetry (ED) STAT Care 11/19/17 20:50 Active CHEST 1 VIEW (PORTABLE) Stat Exams 11/19/17 20:51 Taken CHEST WITH CONTRAST [CT] Stat Exams 11/19/17 22:28 Taken ABG [ARTERIAL BLOOD GASES] Urgent Lab 11/19/17 21:20 Completed AMYLASE Stat Lab 11/19/17 20:50 Completed ARTERIAL BLOOD GASES Urgent Lab 11/19/17 21:00 Completed BLOOD CULTURE Stat Lab 11/19/17 21:00 Received CBC W DIFF Stat Lab 11/19/17 20:50 Completed CMP Stat Lab 11/19/17 20:50 Completed CULTURE,SPUTUM Stat Lab 11/19/17 23:48 Received D-DIMER QUANTITATION Stat Lab 11/19/17 20:50 Completed LIPASE Stat Lab 11/19/17 20:50 Completed Lactic Acid Stat Lab 11/19/17 21:00 Completed Lactic Acid Stat Lab 11/19/17 23:12 Ordered Lactic Acid Stat Lab 11/19/17 23:29 Completed MAGNESIUM Stat Lab 11/19/17 20:50 Completed Manual Differential NC Stat Lab 11/19/17 20:50 Completed NT PRO BNP Stat Lab 11/19/17 20:50 Completed PROTIME WITH INR Stat Lab 11/19/17 20:50 Completed PTT Stat Lab 11/19/17 20:50 Completed TROPONIN Q3H Lab 11/19/17 20:50 Completed TROPONIN Q3H Lab 11/20/17 00:26 Completed TROPONIN Q3H Lab 11/20/17 03:00 Ordered TROPONIN Q3H Lab 11/20/17 06:00 Ordered TROPONIN Q3H Lab 11/20/17 09:00 Ordered Respiratory Nebulizer STAT RT 11/19/17 22:16 Active Medication Summary Discontinued Medications Generic Name Dose Route Start Last Admin Trade Name Freq PRN Reason Stop Dose Admin Aspirin 324 mg 11/19/17 20:50 11/19/17 20:59 Baby Aspirin 81 Mg Chew PO 11/19/17 20:51 324 mg STAT ONE Administration Ceftriaxone Sodium Confirm 11/19/17 21:51 Rocephin 1000 Mg Inj Administered 11/19/17 21:52 Dose 1,000 mg .ROUTE .STK-MED ONE Sodium Chloride 1,000 mls @ 999 mls/hr 11/19/17 20:50 11/19/17 21:05 Sodium Chloride 0.9% 1000 Ml IV 11/19/17 21:50 999 mls/hr .Q1H1M STA Administration Sodium Chloride Confirm 11/19/17 20:55 Sodium Chloride 0.9% 1000 Ml Administered 11/19/17 20:56 Dose 1,000 mls @ ud .ROUTE .STK-MED ONE Ceftriaxone Sodium 1,000 mg/ 100 mls @ 100 mls/hr 11/19/17 21:44 11/19/17 22: 02 Sodium Chloride IV 11/19/17 22:43 100 mls/hr STAT ONE Administration Azithromycin 500 mg in 250 mls @ 250 mls/hr 11/19/17 21:44 11/19/17 22:57 Zithromax 500 Mg/ 250 Ml Nacl Premix IV 11/19/17 22:43 250 mls/hr STAT STA Administration Sodium Chloride 1,000 mls @ 999 mls/hr 11/19/17 21:53 11/19/17 22:56 Sodium Chloride 0.9% 1000 Ml IV 11/19/17 22:53 999 mls/hr .Q1H1M STA Administration Azithromycin Confirm 11/19/17 21:51 Zithromax 500 Mg/ 250 Ml Nacl Premix Administered 11/19/17 21:52 Dose 500 mg in 250 mls @ ud IV .STK-MED ONE Sodium Chloride Confirm 11/19/17 21:52 Sodium Chloride 0.9% 100 Ml Ivpb Administered 11/19/17 21:53 Dose 100 mls @ ud IV .STK-MED ONE Sodium Chloride Confirm 11/19/17 22:56 Sodium Chloride 0.9% 1000 Ml Administered 11/19/17 22:57 Dose 1,000 mls @ ud .ROUTE .STK-MED ONE Sodium Chloride 1,000 mls @ 999 mls/hr 11/19/17 23:28 11/19/17 23:48 Sodium Chloride 0.9% 1000 Ml IV 11/20/17 00:28 999 mls/hr .Q1H1M STA Administration Sodium Chloride Confirm 11/19/17 23:48 Sodium Chloride 0.9% 1000 Ml Administered 11/19/17 23:49 Dose 1,000 mls @ ud .ROUTE .STK-MED ONE Levalbuterol HCl 1.25 mg 11/19/17 21:44 11/19/17 22:15 Xopenex 1.25 Mg/0.5 Ml Ud Nebule IH 11/19/17 21:45 1.25 mg STAT ONE Administration Levalbuterol HCl Confirm 11/19/17 22:11 Xopenex 1.25 Mg/0.5 Ml Ud Nebule Administered 11/19/17 22:12 Dose 1.25 mg IH .STK-MED ONE Nitroglycerin 0.4 mg 11/19/17 20:50 11/19/17 21:01 Nitrostat 0.4 Mg (Ed) SL 11/19/17 20:51 0.4 mg STAT ONE Administration Lab/Rad Data: Laboratory Result Diagrams 11/19/17 20:50 11/19/17 20:50 Laboratory Results 11/20/17 11/20/17 11/19/17 Range/Units 00:30 00:26 21:20 WBC (4.0-10.5) K/mm3 RBC (4.1-5.6) M/mm3 Hgb (12.5-18.0) gm/dl Hct (42-50) % MCV (78-100) fl MCH (26-32) pg MCHC (32-36) g/dl RDW (11.5-14.0) % Plt Count (150-450) K/mm3 MPV (6-9.5) fl Absolute Lymphs (auto) (1.0-4.6) Segmented Neutrophils (36.-66.) % Band Neutrophils (0.0-2.0) % Lymphocytes (Manual) (24-44) % Monocytes (Manual) (0.0-12.0) % Differential Comment Platelet Estimate (NORMAL) PT (8.83-12.87) SECONDS INR (0.8-3.0) APTT (24.1-36.1) SECONDS D-Dimer (215-500) ng/mL Puncture Site LEFT RADIAL pCO2 42 (35-45) mmHg pO2 49 L* (75-100) mmHg Base Excess 1.0 (-2.0-2.0) O2 Saturation 85.1 L (94-100) g/dF ABG pH 7.40 (7.35-7.45) ABG HCO3 26.0 (22-28) ABG O2 Sat (Measured) 87.8 L (95-100) % Harrison Test YES A-a Gradient 98 a/A Ratio 0.33 Hemoglobin 12.2 Carboxyhemoglobin 2.3 (0.0-6.9) % THgb Methemoglobin 0.9 L (1.4-1.5) % Temperature 37.0 C POC O2 Flow Rate 28 % Sodium (137-145) mmol/L Potassium 3.6 (3.5-5.1) mmol/L Chloride (98-107) mmol/L Carbon Dioxide (22-30) mmol/L Anion Gap (5-15) MEQ/L BUN (9-20) mg/dL Creatinine (0.66-1.25) mg/dL Estimated GFR ML/MIN Glucose (74-106) mg/dL Lactic Acid 1.1 (0.4-2.0) Calcium (8.4-10.2) mg/dL Magnesium (1.6-2.3) mg/dL Total Bilirubin (0.2-1.3) mg/dL AST (17-59) U/L ALT (0-50) U/L Alkaline Phosphatase (38-126) U/L Troponin I 0.047 H* (0.000-0.034) ng/mL NT-Pro-B Natriuret Pep (0-900) pg/mL Serum Total Protein (6.3-8.2) g/dL Albumin (3.5-5.0) g/dL Amylase (30-110) U/L Lipase (23-300) U/L Ur Collection Type Urine Color (YELLOW) Urine Appearance (CLEAR) Urine pH (5-6) Ur Specific Clyman (1.005-1.025) Urine Protein (Negative) Urine Ketones (NEGATIVE) Urine Blood (0-5) Earl/ul Urine Nitrite (NEGATIVE) Urine Bilirubin (NEGATIVE) Urine Urobilinogen (0-1) mg/dL Ur Leukocyte Esterase (NEGATIVE) Urine Culture Reflexed (NO) Urine Glucose (NEGATIVE) mg/dL Urine Opiates Level (NEGATIVE) Ur Methadone (NEGATIVE) Urine Barbiturates (NEGATIVE) Ur Phencyclidine (PCP) (NEGATIVE) Urine Amphetamine (NEGATIVE) U Benzodiazepine Level (NEGATIVE) Urine Cocaine (NEGATIVE) Urine Marijuana (THC) (NEGATIVE) Specimen Received 11/19/17 11/19/17 11/19/17 Range/Units 21:00 21:00 20:50 WBC (4.0-10.5) K/mm3 RBC (4.1-5.6) M/mm3 Hgb (12.5-18.0) gm/dl Hct (42-50) % MCV (78-100) fl MCH (26-32) pg MCHC (32-36) g/dl RDW (11.5-14.0) % Plt Count (150-450) K/mm3 MPV (6-9.5) fl Absolute Lymphs (auto) (1.0-4.6) Segmented Neutrophils (36.-66.) % Band Neutrophils (0.0-2.0) % Lymphocytes (Manual) (24-44) % Monocytes (Manual) (0.0-12.0) % Differential Comment Platelet Estimate (NORMAL) PT (8.83-12.87) SECONDS INR (0.8-3.0) APTT (24.1-36.1) SECONDS D-Dimer (215-500) ng/mL Puncture Site RIGHT RADIAL pCO2 47 H (35-45) mmHg pO2 30 L* (75-100) mmHg Base Excess 2.8 H (-2.0-2.0) O2 Saturation 59.9 L (94-100) g/dF ABG pH 7.39 (7.35-7.45) ABG HCO3 28.5 H (22-28) ABG O2 Sat (Measured) 62.2 L (95-100) % Harrison Test YES A-a Gradient 196 a/A Ratio 0.13 Hemoglobin 13.5 Carboxyhemoglobin 2.9 (0.0-6.9) % THgb Methemoglobin 0.8 L (1.4-1.5) % Temperature 37.0 C POC O2 Flow Rate 40 % Sodium (137-145) mmol/L Potassium 3.6 (3.5-5.1) mmol/L Chloride (98-107) mmol/L Carbon Dioxide (22-30) mmol/L Anion Gap (5-15) MEQ/L BUN (9-20) mg/dL Creatinine (0.66-1.25) mg/dL Estimated GFR ML/MIN Glucose (74-106) mg/dL Lactic Acid 2.1 H (0.4-2.0) Calcium (8.4-10.2) mg/dL Magnesium (1.6-2.3) mg/dL Total Bilirubin (0.2-1.3) mg/dL AST (17-59) U/L ALT (0-50) U/L Alkaline Phosphatase (38-126) U/L Troponin I 0.029 (0.000-0.034) ng/mL NT-Pro-B Natriuret Pep (0-900) pg/mL Serum Total Protein (6.3-8.2) g/dL Albumin (3.5-5.0) g/dL Amylase (30-110) U/L Lipase (23-300) U/L Ur Collection Type Urine Color (YELLOW) Urine Appearance (CLEAR) Urine pH (5-6) Ur Specific Clyman (1.005-1.025) Urine Protein (Negative) Urine Ketones (NEGATIVE) Urine Blood (0-5) Earl/ul Urine Nitrite (NEGATIVE) Urine Bilirubin (NEGATIVE) Urine Urobilinogen (0-1) mg/dL Ur Leukocyte Esterase (NEGATIVE) Urine Culture Reflexed (NO) Urine Glucose (NEGATIVE) mg/dL Urine Opiates Level (NEGATIVE) Ur Methadone (NEGATIVE) Urine Barbiturates (NEGATIVE) Ur Phencyclidine (PCP) (NEGATIVE) Urine Amphetamine (NEGATIVE) U Benzodiazepine Level (NEGATIVE) Urine Cocaine (NEGATIVE) Urine Marijuana (THC) (NEGATIVE) Specimen Received 11/19/17 11/19/17 11/19/17 Range/Units 20:50 20:50 20:50 WBC 27.4 H* (4.0-10.5) K/mm3 RBC 4.78 (4.1-5.6) M/mm3 Hgb 14.5 (12.5-18.0) gm/dl Hct 43.3 (42-50) % MCV 90.6 (78-100) fl MCH 30.3 (26-32) pg MCHC 33.5 (32-36) g/dl RDW 15.4 H (11.5-14.0) % Plt Count 393 (150-450) K/mm3 MPV 10.4 H (6-9.5) fl Absolute Lymphs (auto) 1.03 (1.0-4.6) Segmented Neutrophils 90 H (36.-66.) % Band Neutrophils 1 (0.0-2.0) % Lymphocytes (Manual) 5 L (24-44) % Monocytes (Manual) 4 (0.0-12.0) % Differential Comment NORMAL Platelet Estimate NORMAL (NORMAL) PT 10.5 (8.83-12.87) SECONDS INR 0.94 (0.8-3.0) APTT 27.5 (24.1-36.1) SECONDS D-Dimer 1944.30 H* (215-500) ng/mL Puncture Site pCO2 (35-45) mmHg pO2 (75-100) mmHg Base Excess (-2.0-2.0) O2 Saturation (94-100) g/dF ABG pH (7.35-7.45) ABG HCO3 (22-28) ABG O2 Sat (Measured) (95-100) % Harrison Test A-a Gradient a/A Ratio Hemoglobin Carboxyhemoglobin (0.0-6.9) % THgb Methemoglobin (1.4-1.5) % Temperature C POC O2 Flow Rate % Sodium 140 (137-145) mmol/L Potassium 4.0 (3.5-5.1) mmol/L Chloride 100 (98-107) mmol/L Carbon Dioxide 30 (22-30) mmol/L Anion Gap 13.2 (5-15) MEQ/L BUN 23 H (9-20) mg/dL Creatinine 1.02 (0.66-1.25) mg/dL Estimated GFR > 60.0 ML/MIN Glucose 127 H (74-106) mg/dL Lactic Acid (0.4-2.0) Calcium 10.0 (8.4-10.2) mg/dL Magnesium 2.0 (1.6-2.3) mg/dL Total Bilirubin 0.60 (0.2-1.3) mg/dL AST 32 (17-59) U/L ALT 52 H (0-50) U/L Alkaline Phosphatase 91 (38-126) U/L Troponin I (0.000-0.034) ng/mL NT-Pro-B Natriuret Pep 3320 H (0-900) pg/mL Serum Total Protein 6.8 (6.3-8.2) g/dL Albumin 4.0 (3.5-5.0) g/dL Amylase 57 (30-110) U/L Lipase 46 (23-300) U/L Ur Collection Type Urine Color (YELLOW) Urine Appearance (CLEAR) Urine pH (5-6) Ur Specific Clyman (1.005-1.025) Urine Protein (Negative) Urine Ketones (NEGATIVE) Urine Blood (0-5) Earl/ul Urine Nitrite (NEGATIVE) Urine Bilirubin (NEGATIVE) Urine Urobilinogen (0-1) mg/dL Ur Leukocyte Esterase (NEGATIVE) Urine Culture Reflexed (NO) Urine Glucose (NEGATIVE) mg/dL Urine Opiates Level (NEGATIVE) Ur Methadone (NEGATIVE) Urine Barbiturates (NEGATIVE) Ur Phencyclidine (PCP) (NEGATIVE) Urine Amphetamine (NEGATIVE) U Benzodiazepine Level (NEGATIVE) Urine Cocaine (NEGATIVE) Urine Marijuana (THC) (NEGATIVE) Specimen Received 11/19/17 11/19/17 Range/Units 00:26 00:26 WBC (4.0-10.5) K/mm3 RBC (4.1-5.6) M/mm3 Hgb (12.5-18.0) gm/dl Hct (42-50) % MCV (78-100) fl MCH (26-32) pg MCHC (32-36) g/dl RDW (11.5-14.0) % Plt Count (150-450) K/mm3 MPV (6-9.5) fl Absolute Lymphs (auto) (1.0-4.6) Segmented Neutrophils (36.-66.) % Band Neutrophils (0.0-2.0) % Lymphocytes (Manual) (24-44) % Monocytes (Manual) (0.0-12.0) % Differential Comment Platelet Estimate (NORMAL) PT (8.83-12.87) SECONDS INR (0.8-3.0) APTT (24.1-36.1) SECONDS D-Dimer (215-500) ng/mL Puncture Site pCO2 (35-45) mmHg pO2 (75-100) mmHg Base Excess (-2.0-2.0) O2 Saturation (94-100) g/dF ABG pH (7.35-7.45) ABG HCO3 (22-28) ABG O2 Sat (Measured) (95-100) % Harrison Test A-a Gradient a/A Ratio Hemoglobin Carboxyhemoglobin (0.0-6.9) % THgb Methemoglobin (1.4-1.5) % Temperature C POC O2 Flow Rate % Sodium (137-145) mmol/L Potassium (3.5-5.1) mmol/L Chloride (98-107) mmol/L Carbon Dioxide (22-30) mmol/L Anion Gap (5-15) MEQ/L BUN (9-20) mg/dL Creatinine (0.66-1.25) mg/dL Estimated GFR ML/MIN Glucose (74-106) mg/dL Lactic Acid (0.4-2.0) Calcium (8.4-10.2) mg/dL Magnesium (1.6-2.3) mg/dL Total Bilirubin (0.2-1.3) mg/dL AST (17-59) U/L ALT (0-50) U/L Alkaline Phosphatase (38-126) U/L Troponin I (0.000-0.034) ng/mL NT-Pro-B Natriuret Pep (0-900) pg/mL Serum Total Protein (6.3-8.2) g/dL Albumin (3.5-5.0) g/dL Amylase (30-110) U/L Lipase (23-300) U/L Ur Collection Type VOID Urine Color YELLOW (YELLOW) Urine Appearance CLEAR (CLEAR) Urine pH 5.0 (5-6) Ur Specific Clyman 1.020 (1.005-1.025) Urine Protein NEGATIVE (Negative) Urine Ketones NEGATIVE (NEGATIVE) Urine Blood NEGATIVE (0-5) Earl/ul Urine Nitrite NEGATIVE (NEGATIVE) Urine Bilirubin NEGATIVE (NEGATIVE) Urine Urobilinogen NORMAL (0-1) mg/dL Ur Leukocyte Esterase NEGATIVE (NEGATIVE) Urine Culture Reflexed NO (NO) Urine Glucose NEGATIVE (NEGATIVE) mg/dL Urine Opiates Level NEGATIVE (NEGATIVE) Ur Methadone NEGATIVE (NEGATIVE) Urine Barbiturates NEGATIVE (NEGATIVE) Ur Phencyclidine (PCP) NEGATIVE (NEGATIVE) Urine Amphetamine NEGATIVE (NEGATIVE) U Benzodiazepine Level NEGATIVE (NEGATIVE) Urine Cocaine NEGATIVE (NEGATIVE) Urine Marijuana (THC) NEGATIVE (NEGATIVE) Specimen Received 11/20/17 0015 - Progress Discussed with : Other (SPOKE WITH DR CAMARGO(ER DR)([id number]) WHO ACCEPTED PT FOR TRANSFER TO [facility] ER.) - Departure Time of Disposition: 02:43 Departure Disposition: Transfer ([facility]) Clinical Impression: ACUTE RESPIRATORY FAILURE, PNEUMONIA, HTN, ARTHRITIS, GERD, ANXIETY, ELEVATED TROPONIN, COPD Condition: Stable Critical Care Time: Yes Critical Care Time(excluding separately billable procedures): 30-74 minutes Referrals: AMA VELAZQUEZ [Primary Care Provider] -
[2017-11-19 21:01] LABS: Hematocrit 43.3 % (42-50); Hemoglobin 14.5 gm/dl (12.5-18.0); Lymphocyte (Absolute #) 1.03 (1.0-4.6); Mean Cell Volume 90.6 fl (78-100); Mean Corpuscular Hemoglobin 30.3 pg (26-32); Mean Corpuscular Hgb Concent. 33.5 g/dl (32-36); Mean Platelet Volume 10.4 fl (6-9.5); Platelet Count 393 K/mm3 (150-450); Red Blood Count 4.78 M/mm3 (4.1-5.6); Red Cell Distribution Width 15.4 % (11.5-14.0)
[2017-11-19 21:08] LABS: A-aADO2 196; ABG HEMOGLOBIN 13.5; ABG POTASSIUM 3.6 (3.5-5.1); ARTERIAL BLD GAS O2 SATURATION 62.2 % (95-100); ARTERIAL BLOOD GAS BASE EXCESS 2.8 (-2.0-2.0); ARTERIAL BLOOD GAS FIO2 40 %; ARTERIAL BLOOD GAS PCO2 47 mmHg (35-45); ARTERIAL BLOOD GAS PO2 30 mmHg (75-100); ARTERIAL BLOOD GAS pH 7.39 (7.35-7.45); CARBOXYHEMOGLOBIN 2.9 % THgb (0.0-6.9); HCO3- 28.5 (22-28); HGB O2 SAT 59.9 g/dF (94-100); Methhemoglobin 0.8 % (1.4-1.5); paO2 pAO1 0.13
[2017-11-19 21:09] LABS: ABG SITE RIGHT RADIAL; ALLEN TEST OK? YES
[2017-11-19 21:12] LABS: Lactic Acid 2.1 (0.4-2.0)
[2017-11-19 21:21] LABS: ALKALINE PHOSPHATASE 91 U/L (38-126); AMYLASE 57 U/L (30-110); ANION GAP 13.2 MEQ/L (5-15); BLOOD UREA NITROGEN 23 mg/dL (9-20); CHLORIDE 100 mmol/L (98-107); Carbon Dioxide 30 mmol/L (22-30); Creatinine 1 1.02 mg/dL (0.66-1.25); Glucose 127 mg/dL (74-106); LIPASE 46 U/L (23-300); SGOT/AST 32 U/L (17-59); SGPT/ALT 52 U/L (0-50); SODIUM 140 mmol/L (137-145); Total Protein 6.8 g/dL (6.3-8.2)
[2017-11-19 21:23] LABS: A-aADO2 98; ABG HEMOGLOBIN 12.2; ABG POTASSIUM 3.6 (3.5-5.1); ARTERIAL BLD GAS O2 SATURATION 87.8 % (95-100); ARTERIAL BLOOD GAS PCO2 42 mmHg (35-45); Methhemoglobin 0.9 % (1.4-1.5); paO2 pAO1 0.33
[2017-11-19 21:24] LABS: ARTERIAL BLOOD GAS FIO2 28 %; CARBOXYHEMOGLOBIN 2.3 % THgb (0.0-6.9); HGB O2 SAT 85.1 g/dF (94-100)
[2017-11-19 21:25] LABS: ABG SITE LEFT RADIAL; ALLEN TEST OK? YES; ARTERIAL BLOOD GAS PO2 49 mmHg (75-100)
[2017-11-19 21:29] LABS: White Blood Count 27.4 K/mm3 (4.0-10.5)
[2017-11-19 21:30] LABS: NT PRO BNP 3320 pg/mL (0-900)
[2017-11-19] MEDS ORDERED: Rocephin 1000 MG INJ** 1,000 MG in Sodium Chloride 0.9% 100 ML IVPB 100 ML IV ONE (21:44)
[2017-11-19] MEDS ORDERED: Zithromax 500 MG/ 250 ML NaCl Premix 500 MG/250 ML IVPB IV STA (21:44)
[2017-11-19] MEDS ORDERED: Xopenex 1.25 MG/0.5 ML UD NEBULE IH ONE ×2 (21:44→22:11)
[2017-11-19] MEDS ORDERED: Rocephin 1000 MG INJ ONE (21:51)
[2017-11-19] MEDS ORDERED: Zithromax 500 MG/ 250 ML NaCl Premix 500 MG/250 ML IVPB IV ONE (21:51)
[2017-11-19] MEDS ORDERED: Sodium Chloride 0.9% 100 ML IVPB 100 ML IV ONE (21:52)
[2017-11-19 22:23] LABS: BAND 1 % (0.0-2.0); Lymphocytes 5 % (24-44); Monocyte 4 % (0.0-12.0); Neutrophils 90 % (36.-66.); Platelet Estimate NORMAL (NORMAL); Total Cells Counted 100
[2017-11-19 22:26] LABS: INR 0.94 (0.8-3.0); PTT 27.5 SECONDS (24.1-36.1)
[2017-11-19 22:27] LABS: D-DIMER QUANTITATION 1944.3 ng/mL (215-500)
[2017-11-20 00:33] LABS: Appearance CLEAR (CLEAR); Bilirubin NEGATIVE (NEGATIVE); Blood NEGATIVE Ery/ul (0-5); Glucose NEGATIVE (NEGATIVE); Ketones NEGATIVE (NEGATIVE); Leukocyte Esterase NEGATIVE (NEGATIVE); Nitrite NEGATIVE (NEGATIVE); Protein,Urine Dip NEGATIVE (Negative); Urobilinogen NORMAL mg/dL (0-1)
[2017-11-20 00:51] LABS: Amphetamine,Urine NEGATIVE (NEGATIVE); Barbiturate,Urine NEGATIVE (NEGATIVE); Benzodiazepine,Urine NEGATIVE (NEGATIVE); Cocaine,Urine NEGATIVE (NEGATIVE); Methadone,Urine NEGATIVE (NEGATIVE); Opiate,Urine NEGATIVE (NEGATIVE); PCP,Urine NEGATIVE (NEGATIVE); THC,Urine NEGATIVE (NEGATIVE)
[2017-11-20 04:11] VITALS: BP 150/75; PULSE 81; O2SAT 97
[2017-11-20] MEDS ORDERED: BABY ASPIRIN 81 MG CHEW ONE (05:08)
[2017-11-20] MEDS ORDERED: Nitrostat 0.4 MG (ED) SL ONE (05:08)
--- NOTE | 2017-11-20 07:48 | XRAY ---
Indication: Chest tightness and short of breath. Elevated d-dimer. Multiple contiguous axial images obtained through the chest using 80 cc Isovue 370 contrast and PE protocol. Comparison: January 10, 2015. There is satisfactory opacification of the pulmonary arteries to include the lobar and segmental branches. Again no filling defect or pulmonary embolus. Heart is not enlarged. Aorta remains mildly calcified without aneurysm/dissection. Stable prominent subcarinal lymph node today measuring 1.4 x 2.8 cm. Stable moderate-sized hiatal hernia with partial intrathoracic stomach. Examination of the lung parenchyma again demonstrates extensive pulmonary emphysema and right upper lobe calcified granuloma. There is now moderate bilateral dependent atelectasis versus infiltrates. No large effusion. Bony thorax intact again with minimal degenerative changes throughout the spine. Limited upper abdomen again demonstrates left renal cysts. Impression: 1. Again negative pulmonary embolus. 2. New bilateral dependent atelectasis versus infiltrates. Correlate clinically. 3. Stable pulmonary emphysema, prominent subcarinal lymph node, moderate sized hiatal hernia, and left renal cysts. Comment: Preliminary interpretation was made by [facility]. No critical discrepancy. CTDI 10.26
--- NOTE | 2017-11-20 07:50 | XRAY ---
Indication: Short of breath. Comparison: October 13, 2017. Portable chest again demonstrates COPD with new minimal bibasilar infiltrates versus atelectasis. Remaining heart and lungs unremarkable. Bony thorax intact again with mild degenerative changes.
== END 2017-11-20 04:07 | disposition short-term general hospital (02) ==
LOC: ED 20:42
DX: J96.00 Acute respiratory failure, unspecified whether with hypoxia or hypercapnia (principal); J18.9 Pneumonia, unspecified organism; I10 Essential (primary) hypertension; M19.90 Unspecified osteoarthritis, unspecified site; K21.9 Gastro-esophageal reflux disease without esophagitis; F41.9 Anxiety disorder, unspecified; J44.9 Chronic obstructive pulmonary disease, unspecified; R77.8 Other specified abnormalities of plasma proteins
CPT/HCPCS: 36000; 36415; 36600; 71045; 71260; 80053; 80307; 81002; 82150; 82375; 82803; 83605; 83690; 83735; 83880; 84484; 85025; 85379; 85610; 85730; 87040; 87070; 87077; 93005; 93041; 94640; 96360; 96361; 96365; 96367; 99285; J0456; J0696; A9270-GY

== ENCOUNTER 2019-01-01 01:45 | Emergency (ER) | payer OTHER, MEDICARE ==
[2019-01-01] MEDS ORDERED: solu-MEDROL 125 MG IV ONE (01:56)
[2019-01-01] MEDS ORDERED: DUONEB 0.5-3 MG/3 ml Neb IH ONE ×2 (01:56→02:22)
[2019-01-01] MEDS ORDERED: Sodium Chloride 0.9% 1000 ML 1,000 ML IV SCH ×2 (02:00→06:30)
[2019-01-01] MEDS ORDERED: Sodium Chloride 0.9% 1000 ML 1,000 ML ONE ×2 (02:02→06:24)
[2019-01-01] MEDS ORDERED: solu-MEDROL 125 MG ONE (02:02)
--- NOTE | 2019-01-01 02:04 | ERPHSYRPT ---
- History of Present Illness Time Seen by Provider: 01/01/19 01:59 Source: patient Physician History: 73-year-old white male with history of CVA, high blood pressure, bronchitis, COPD, pneumonia, arthritis, colorectal cancer Patient arrives with complaint of shortness of breath cough productive of yellow to white sputum symptoms going on for 2 weeks he states that he has had a fever he does state also that he has not had chest pain other than when coughing Patient states he coughs so hard sometimes that he will vomit. Past medical history includes CVA, high blood pressure, bronchitis, COPD, pneumonia, arthritis, colorectal cancer, GERD, polyps, anxiety, Cassidy's palsy Past surgical history includes hernia repair patient had a collapsed lung in 1969 Social history patient is a former smoker he occasionally uses alcohol he does not use any illicit drugs./ Timing/Duration: week(s) (2 weeks) Activities at Onset: none Severity of Dyspnea-Max: moderate Severity of Dyspnea-Current: moderate Possible Cause: occasional episodes Associated Symptoms: constant, cough, fever, wheezing, chills, productive cough , No chest pain/discomfort, No insomnia, No loss of appetite, No lightheadedness , No weakness, No ankle swelling, No hemoptysis, No calf pain, No dizziness, No heaviness, No heart racing, No lightheadedness, No leg swelling, No muscle spasms feet, No muscle spasms hands, No painful breathing, No sweating, No tightness, No tingling face International travel in last 2 weeks: No Allergies/Adverse Reactions: Penicillins Allergy (Mild, Verified 01/01/19 01:48) Home Medications: Albuterol 2 mg/5 ml Syrup [Ventolin Syrup 2 mg/5 ml] 1 neb IH Q4HPRN PRN 01/28/17 [History] Albuterol Sulfate [Proair Hfa] 2 puff IN Q6H PRN 01/01/19 [History] Hx Tetanus, Diphtheria Vaccination/Date Given: Yes Hx Influenza Vaccination/Date Given: Yes Hx Pneumococcal Vaccination/Date Given: Yes - Review of Systems Constitutional: Fever, Chills, No Fatigue, No Lethargy, No Malaise, No Night Sweats, No Weakness, No Weight Loss, No Other Eyes: No Symptoms Ears, Nose, & Throat: Throat Pain, No Ear Pain, No Ear Discharge, No Hearing Changes, No Nose Pain, No Nose Congestion, No Nose Discharge, No Sinus Drainage , No Epistaxis, No Mouth Pain, No Mouth Swelling, No Loose Teeth, No Throat Swelling, No Hoarse, No Painful Swallowing, No Snoring, No Stridor Respiratory: Cough, Dyspnea, Wheezing Cardiac: No Chest Pain, No Edema, No Syncope Abdominal/Gastrointestinal: No Abdominal Pain, No Nausea, No Vomiting, No Diarrhea Genitourinary Symptoms: No Dysuria Musculoskeletal: No Back Pain, No Neck Pain Skin: No Rash Neurological: No Dizziness, No Focal Weakness, No Sensory Changes Psychological: No Symptoms Endocrine: No Symptoms All Other Systems: Reviewed and Negative - Past Medical History Pertinent Past Medical History: Yes Neurological History: Stroke, Other ENT History: Other Cardiac History: Hypertension Respiratory History: Bronchitis, COPD, Pneumonia Endocrine Medical History: No Pertinent History Musculoskeletal History: Arthritis GI Medical History: Colorectal Cancer, GERD, Polyps History: No Pertinent History Psycho-Social History: Anxiety Male Reproductive Disorders: No Pertinent History Other Medical History: [place] Palsy - Past Surgical History Past Surgical History: Yes Neuro Surgical History: No Pertinent History Cardiac: No Pertinent History Respiratory: Other Gastrointestinal: Hernia Repair Genitourinary: No Pertinent History Musculoskeletal: No Pertinent History Male Surgical History: No Pertinent History Other Surgical History: collapsed lung s - Social History Smoking Status: Former smoker Exposure to second hand smoke: No Drug Use: none Patient Lives Alone: No - Nursing Vital Signs Nursing Vital Signs: Initial Vital Signs Temperature 101.8 F 01/01/19 01:48 Pulse Rate 121 H 01/01/19 01:48 Respiratory Rate 36 H 01/01/19 01:48 Blood Pressure 166/92 01/01/19 01:48 O2 Sat by Pulse Oximetry 90 L 01/01/19 01:48 - Physical Exam General Appearance: moderate distress, alert Eye Exam: PERRL/EOMI (and and in) Ears, Nose, Throat Exam: normal ENT inspection, normal pharynx, hearing decreased, No abnormal TM (R), No abnormal TM (L) Neck Exam: normal inspection, supple Respiratory Exam: airway intact, diminished breath sounds (and an in and), wheezing Cardiovascular/Chest Exam: normal heart sounds, tachycardia, No murmur Abdominal/Gastrointestinal Exam: soft, No tenderness, No distention, No mass Extremity Exam: non-tender, normal range of motion, normal inspection, no calf tenderness, no pedal edema Peripheral Pulses Exam: dorsalis-pedis (R): 2+, dorsalis-pedis (L): 2+ Neurologic Exam: alert, oriented x 3, cooperative, 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-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 nml as tested, sensation nml, No motor deficits Skin Exam: normal color, warm, No dry SpO2 Interpretation: borderline oxygenation (90%) - Course Nursing assessment & vital signs reviewed: Yes EKG Interpreted by Me: RATE (116 bpm), Sinus Tach, Left [place] Deviation, Other ( EKG: Sinus tachycardia 116 beats per minute nonspecific EKGs changes rate related no acute ST or T wave changes) - Radiology Exams Chest X-ray Interpretation: Interpreted by me (chest x-ray: Impression: Chronic COPD no acute changes as compared to July 11, 2018) - CT Exams Chest CT Interpretation: Tele-radiologist Report (CT of the chest with contrast: Impression 1. No pulmonary embolism identified 2. Mild by basilar peribronchial thickening and mucus plugging with minimal reticulonodular opacities in the right lower lobe likely infectious/inflammatory. Mild dependent groundglass opacity more prominent on the left may represent atelectasis or. Inflammation) Ordered Tests: Active Orders 24 hr Category Date Time Status Jacker STAT Care 01/01/19 01:57 Active EKG-ER Only STAT Care 01/01/19 01:56 Active IV Insertion STAT Care 01/01/19 01:56 Active Oxygen-ED Only Nasal Cannula 2 lpm Care 01/01/19 01:56 Active Pulse Oximetry (ED) STAT Care 01/01/19 01:56 Active CHEST 1 VIEW (PORTABLE) Stat Exams 01/01/19 01:57 Taken CHEST WITH CONTRAST [CT] Stat Exams 01/01/19 02:54 Taken BLOOD CULTURE Stat Lab 01/01/19 02:25 Received CBC W DIFF Stat Lab 01/01/19 02:05 Completed CMP Stat Lab 01/01/19 02:05 Completed CULTURE,SPUTUM Stat Lab 01/01/19 01:56 Uncollected D-DIMER QUANTITATION Stat Lab 01/01/19 02:05 Completed Lactic Acid Stat Lab 01/01/19 01:56 Completed NT PRO BNP Stat Lab 01/01/19 02:05 Completed TROPONIN Q3H Lab 01/01/19 02:05 Completed TROPONIN Q3H Lab 01/01/19 05:18 Completed TROPONIN Q3H Lab 01/01/19 08:00 Ordered TROPONIN Q3H Lab 01/01/19 11:00 Ordered TROPONIN Q3H Lab 01/01/19 14:00 Ordered UA W/RFX UR CULTURE Stat Lab 01/01/19 04:27 Completed VENOUS BLOOD GAS Stat Lab 01/01/19 01:56 Completed Peak Expiratory Flow Rate ONCE RT 01/01/19 02:35 Active Respiratory Therapy Assessment DAILY RT 01/01/19 02:35 Active Medication Summary Generic Name Dose Route Start Last Admin Trade Name Freq PRN Reason Stop Dose Admin Sodium Chloride 1,000 mls @ 150 mls/hr 01/01/19 02:00 01/01/19 02:27 Sodium Chloride 0.9% 1000 Ml IV 01/31/19 01:59 150 mls/hr .[id number] HARJIT Administration Discontinued Medications Generic Name Dose Route Start Last Admin Trade Name Freq PRN Reason Stop Dose Admin Acetaminophen 975 mg 01/01/19 02:06 01/01/19 02:15 Tylenol 325 Mg PO 01/01/19 02:07 975 mg STAT ONE Administration Acetaminophen Confirm 01/01/19 02:14 Tylenol 325 Mg Administered 01/01/19 02:15 Dose 975 mg .ROUTE .STK-MED ONE Albuterol/Ipratropium 3 ml 01/01/19 01:56 01/01/19 02:31 Duoneb 0.5-3 Mg/3 Ml Neb IH 01/01/19 01:57 3 ml STAT ONE Administration Albuterol/Ipratropium Confirm 01/01/19 02:22 Duoneb 0.5-3 Mg/3 Ml Neb Administered 01/01/19 02:23 Dose 3 ml IH .STK-MED ONE Aspirin 324 mg 01/01/19 06:00 01/01/19 06:07 Baby Aspirin 81 Mg Chew PO 01/01/19 06:01 324 mg STAT ONE Administration Ceftazidime 1 g/ Dextrose 100 mls @ 200 mls/hr 01/01/19 06:00 IV 01/31/19 05:59 Q8HT HARJIT Ceftriaxone Sodium/Dextrose 1 g in 50 mls @ 100 mls/hr 01/01/19 02:44 02:52 Rocephin 1 Gm-D5w 50 Ml Bag IV 01/01/19 03:13 100 mls/hr STAT STA Administration Ceftriaxone Sodium/Dextrose Confirm 01/01/19 02:47 Rocephin 1 Gm-D5w 50 Ml Bag Administered 01/01/19 02:48 Dose 1 g in 50 mls @ ud IV .STK-MED ONE Methylprednisolone Sodium Succinate 125 mg 01/01/19 01:56 01/01/19 02:02 Solu-Medrol 125 Mg IV 01/01/19 01:57 125 mg STAT ONE Administration Methylprednisolone Sodium Succinate Confirm 01/01/19 02:02 Solu-Medrol 125 Mg Administered 01/01/19 02:03 Dose 125 mg .ROUTE .STK-MED ONE Lab/Rad Data: Laboratory Result Diagrams 01/01/19 02:05 01/01/19 02:05 Laboratory Results 01/01/19 01/01/19 01/01/19 Range/Units 05:18 04:27 02:26 WBC (4.0-10.5) K/mm3 RBC (4.1-5.6) M/mm3 Hgb (12.5-18.0) gm/dl Hct (42-50) % MCV (78-100) fl MCH (26-32) pg MCHC (32-36) g/dl RDW (11.5-14.0) % Plt Count (150-450) K/mm3 MPV (6-9.5) fl Gran % (36.0-66.0) % Eos # (Auto) (0-0.5) Absolute Lymphs (auto) (1.0-4.6) Absolute Monos (auto) (0.0-1.3) Lymphocytes % (24.0-44.0) % Monocytes % (0.0-12.0) % Eosinophils % (0.00-5.0) % Basophils % (0.0-0.4) % Absolute Granulocytes (1.4-6.9) Basophils # (0-0.4) D-Dimer (215-500) ng/mL pO2/FiO2 Ratio % VBG pH (7.32-7.42) VBG pCO2 at Pat Temp (42-55) mm/Hg VBG pO2 at Pat Temp (25-40) mm/Hg VBG HCO3 (22-28) meq/L VBG O2 Sat (Mendez) (95-100) VBG Base Excess (-2.0-2.0) VBG Hemoglobin VBG Carboxyhemoglobin (0.0-6.9) % T HGB POC Potassium (3.5-5.1) Sodium (137-145) mmol/L Potassium (3.5-5.1) mmol/L Chloride (98-107) mmol/L Carbon Dioxide (22-30) mmol/L Anion Gap (5-15) MEQ/L BUN (9-20) mg/dL Creatinine (0.66-1.25) mg/dL Estimated GFR ML/MIN Glucose (74-106) mg/dL Lactic Acid (0.4-2.0) Calcium (8.4-10.2) mg/dL Total Bilirubin (0.2-1.3) mg/dL AST (17-59) U/L ALT (0-50) U/L Alkaline Phosphatase (38-126) U/L Troponin I 0.051 H* (0.000-0.034) ng/mL NT-Pro-B Natriuret Pep (0-900) pg/mL Serum Total Protein (6.3-8.2) g/dL Albumin (3.5-5.0) g/dL Urine Color YELLOW (YELLOW) Urine Appearance CLEAR (CLEAR) Urine pH 5.0 (5-6) Ur Specific [place] 1.017 (1.005-1.025) Urine Protein NEGATIVE (Negative) Urine Ketones TRACE (NEGATIVE) Urine Blood NEGATIVE (0-5) Earl/ul Urine Nitrite NEGATIVE (NEGATIVE) Urine Bilirubin NEGATIVE (NEGATIVE) Urine Urobilinogen NEGATIVE (0-1) mg/dL Ur Leukocyte Esterase NEGATIVE (NEGATIVE) Urine WBC (Auto) NONE (0-5) /HPF Urine RBC (Auto) NONE (0-2) /HPF U Epithel Cells (Auto) NONE (FEW) /HPF Urine Bacteria (Auto) NONE SEEN (NEGATIVE) /HPF Urine Mucus (Auto) SLIGHT (NEGATIVE) /HPF Urine Culture Reflexed NO (NO) Urine Glucose NEGATIVE (NEGATIVE) mg/dL Influenza Type A Ag (NEGATIVE) Influenza Type B Ag (NEGATIVE) RSV (PCR) (Negative) Group A Strep Antibody NEGATIVE (NEGATIVE) 01/01/19 01/01/19 01/01/19 Range/Units 02:25 02:05 02:05 WBC (4.0-10.5) K/mm3 RBC (4.1-5.6) M/mm3 Hgb (12.5-18.0) gm/dl Hct (42-50) % MCV (78-100) fl MCH (26-32) pg MCHC (32-36) g/dl RDW (11.5-14.0) % Plt Count (150-450) K/mm3 MPV (6-9.5) fl Gran % (36.0-66.0) % Eos # (Auto) (0-0.5) Absolute Lymphs (auto) (1.0-4.6) Absolute Monos (auto) (0.0-1.3) Lymphocytes % (24.0-44.0) % Monocytes % (0.0-12.0) % Eosinophils % (0.00-5.0) % Basophils % (0.0-0.4) % Absolute Granulocytes (1.4-6.9) Basophils # (0-0.4) D-Dimer 671 H* (215-500) ng/mL pO2/FiO2 Ratio % VBG pH (7.32-7.42) VBG pCO2 at Pat Temp (42-55) mm/Hg VBG pO2 at Pat Temp (25-40) mm/Hg VBG HCO3 (22-28) meq/L VBG O2 Sat (Mendez) (95-100) VBG Base Excess (-2.0-2.0) VBG Hemoglobin VBG Carboxyhemoglobin (0.0-6.9) % T HGB POC Potassium (3.5-5.1) Sodium (137-145) mmol/L Potassium (3.5-5.1) mmol/L Chloride (98-107) mmol/L Carbon Dioxide (22-30) mmol/L Anion Gap (5-15) MEQ/L BUN (9-20) mg/dL Creatinine (0.66-1.25) mg/dL Estimated GFR ML/MIN Glucose (74-106) mg/dL Lactic Acid (0.4-2.0) Calcium (8.4-10.2) mg/dL Total Bilirubin (0.2-1.3) mg/dL AST (17-59) U/L ALT (0-50) U/L Alkaline Phosphatase (38-126) U/L Troponin I < 0.012 (0.000-0.034) ng/mL NT-Pro-B Natriuret Pep (0-900) pg/mL Serum Total Protein (6.3-8.2) g/dL Albumin (3.5-5.0) g/dL Urine Color (YELLOW) Urine Appearance (CLEAR) Urine pH (5-6) Ur Specific [place] (1.005-1.025) Urine Protein (Negative) Urine Ketones (NEGATIVE) Urine Blood (0-5) Earl/ul Urine Nitrite (NEGATIVE) Urine Bilirubin (NEGATIVE) Urine Urobilinogen (0-1) mg/dL Ur Leukocyte Esterase (NEGATIVE) Urine WBC (Auto) (0-5) /HPF Urine RBC (Auto) (0-2) /HPF U Epithel Cells (Auto) (FEW) /HPF Urine Bacteria (Auto) (NEGATIVE) /HPF Urine Mucus (Auto) (NEGATIVE) /HPF Urine Culture Reflexed (NO) Urine Glucose (NEGATIVE) mg/dL Influenza Type A Ag NEGATIVE (NEGATIVE) Influenza Type B Ag NEGATIVE (NEGATIVE) RSV (PCR) NEGATIVE (Negative) Group A Strep Antibody (NEGATIVE) 01/01/19 01/01/19 01/01/19 Range/Units 02:05 02:05 01:56 WBC 6.2 (4.0-10.5) K/mm3 RBC 5.16 (4.1-5.6) M/mm3 Hgb 15.7 (12.5-18.0) gm/dl Hct 45.8 (42-50) % MCV 88.8 (78-100) fl MCH 30.4 (26-32) pg MCHC 34.3 (32-36) g/dl RDW 14.3 H (11.5-14.0) % Plt Count 224 (150-450) K/mm3 MPV 10.6 H (6-9.5) fl Gran % 80.6 H (36.0-66.0) % Eos # (Auto) 0.04 (0-0.5) Absolute Lymphs (auto) 0.52 L (1.0-4.6) Absolute Monos (auto) 0.50 (0.0-1.3) Lymphocytes % 8.4 L (24.0-44.0) % Monocytes % 8.1 (0.0-12.0) % Eosinophils % 0.6 (0.00-5.0) % Basophils % 2.3 (0.0-0.4) % Absolute Granulocytes 4.97 (1.4-6.9) Basophils # 0.14 (0-0.4) D-Dimer (215-500) ng/mL pO2/FiO2 Ratio 28.0 % VBG pH 7.33 (7.32-7.42) VBG pCO2 at Pat Temp 48 (42-55) mm/Hg VBG pO2 at Pat Temp 18 L (25-40) mm/Hg VBG HCO3 25.3 (22-28) meq/L VBG O2 Sat (Mendez) 29.1 L (95-100) VBG Base Excess -1.3 (-2.0-2.0) VBG Hemoglobin 15.9 VBG Carboxyhemoglobin 1.5 (0.0-6.9) % T HGB POC Potassium 4.3 (3.5-5.1) Sodium 134 L (137-145) mmol/L Potassium 4.3 (3.5-5.1) mmol/L Chloride 97 L (98-107) mmol/L Carbon Dioxide 24 (22-30) mmol/L Anion Gap 17.0 H (5-15) MEQ/L BUN 12 (9-20) mg/dL Creatinine 1.07 (0.66-1.25) mg/dL Estimated GFR > 60.0 ML/MIN Glucose 133 H (74-106) mg/dL Lactic Acid 1.6 (0.4-2.0) Calcium 9.4 (8.4-10.2) mg/dL Total Bilirubin 0.50 (0.2-1.3) mg/dL AST 30 (17-59) U/L ALT 19 (0-50) U/L Alkaline Phosphatase 90 (38-126) U/L Troponin I (0.000-0.034) ng/mL NT-Pro-B Natriuret Pep 474 (0-900) pg/mL Serum Total Protein 7.4 (6.3-8.2) g/dL Albumin 4.3 (3.5-5.0) g/dL Urine Color (YELLOW) Urine Appearance (CLEAR) Urine pH (5-6) Ur Specific [place] (1.005-1.025) Urine Protein (Negative) Urine Ketones (NEGATIVE) Urine Blood (0-5) Earl/ul Urine Nitrite (NEGATIVE) Urine Bilirubin (NEGATIVE) Urine Urobilinogen (0-1) mg/dL Ur Leukocyte Esterase (NEGATIVE) Urine WBC (Auto) (0-5) /HPF Urine RBC (Auto) (0-2) /HPF U Epithel Cells (Auto) (FEW) /HPF Urine Bacteria (Auto) (NEGATIVE) /HPF Urine Mucus (Auto) (NEGATIVE) /HPF Urine Culture Reflexed (NO) Urine Glucose (NEGATIVE) mg/dL Influenza Type A Ag (NEGATIVE) Influenza Type B Ag (NEGATIVE) RSV (PCR) (Negative) Group A Strep Antibody (NEGATIVE) - Progress Progress: improved Air Movement: fair Progress Note: 01/01/19 05:54 This is a 73-year-old white male with history of CVA, high blood pressure, bronchitis, COPD, pneumonia, arthritis, colorectal cancer, GERD, polyps, anxiety Patient arrives with complaint of 2 weeks of shortness of breath He denies any chest pain other than when he coughs. He states he has a cough productive of white sputum. Patient arrives with decreased breath sounds and wheezing bilaterally in moderate distress Patient with the EKG remarkable for sinus tachycardia at 116 beats per minute left axis deviation nonspecific ST changes rate dependent there did not appear to be acute ST or T wave changes Patient with a chest x-ray remarkable for COPD patient with the CBC white blood cell 6.2 hemoglobin 15.7 hematocrit 45.8 platelets 224 Patient's venous gases pH 7.33 PCO2 is 48 patient with a chemistry sodium 134 potassium 4.3 chloride 97 bicarbonate 24 BUN 12 creatinine 1.07 glucose 133 Initial troponin is less than 0.012 d-dimer was elevated at 671 Influenza and B. were both negative RSV was negative strep was negative Patient was CT of the chest obtained secondary to increased d-dimer impression 1. No pulmonary embolism identified 2. Mild bibasilar peribronchial thickening and mucus plugging with minimal activity low nausea or opacities in the right lower lobe, likely infectious/inflammatory. There is mild dependent groundglass opacity more prominent on the left which may represent atelectasis or inflammation Patient was given IV normal saline patient was given Tylenol 975 mg orally he was given Solu-Medrol 125 mg IV he was given a DuoNeb treatment. Plans were to place patient on observation case was initially discussed with Dr. panday however unfortunately, the patient's repeat troponin was noted to be elevated. At 0.051. I discussed the patient's case with Dr. pandya she would like the patient to be given aspirin and have the patient consult with [facility] for possible transfer. Impression 1. Shortness of breath 2. COPD with exacerbation 3. Fever 4. Elevated troponin. I discussed the patient's case with Dr. Mayer, he has requested that the patient also begin Zithromax 500 mg orally. He has accepted the patient for transfer to [facility]. 01/01/19 06:17 - Departure Departure Disposition: Transfer ([facility]) Clinical Impression: COPD with exacerbation, Shortness of breath, Elevated troponin Fever Qualifiers: Fever type: unspecified Qualified Code(s): R50.9 - Fever, unspecified Condition: Fair Critical Care Time: No Referrals: AMA VELAZQUEZ [Primary Care Provider] -
[2019-01-01] MEDS ORDERED: TYLENOL 325 MG PO ONE (02:06)
[2019-01-01 02:10] LABS: BASOPHIL % 2.3 % (0.0-0.4); Basophil (Absolute #) 0.14 (0-0.4); Eosinophil % 0.6 % (0.00-5.0); Eosinophil (Absolute #) 0.04 (0-0.5); Granulocyte Absolute (ANC) 4.97 (1.4-6.9); Granulocytes % 80.6 % (36.0-66.0); Hematocrit 45.8 % (42-50); Hemoglobin 15.7 gm/dl (12.5-18.0); Lymphocyte (Absolute #) 0.52 (1.0-4.6); Lymphocytes % 8.4 % (24.0-44.0); Mean Cell Volume 88.8 fl (78-100); Mean Corpuscular Hemoglobin 30.4 pg (26-32); Mean Corpuscular Hgb Concent. 34.3 g/dl (32-36); Mean Platelet Volume 10.6 fl (6-9.5); Monocytes % 8.1 % (0.0-12.0); Platelet Count 224 K/mm3 (150-450); Red Blood Count 5.16 M/mm3 (4.1-5.6); Red Cell Distribution Width 14.3 % (11.5-14.0); White Blood Count 6.2 K/mm3 (4.0-10.5)
[2019-01-01] MEDS ORDERED: TYLENOL 325 MG ONE (02:14)
[2019-01-01 02:21] LABS: Lactic Acid 1.6 (0.4-2.0); VBG BASE EXCESS -1.3 (-2.0-2.0); VBG CARBOXYHEMOGLOBIN 1.5 % T HGB (0.0-6.9); VBG HCO3- 25.3 meq/L (22-28); VBG HEMOGLOBIN 15.9; VBG O2 SATURATION 29.1 (95-100); VBG POTASSIUM 4.3 (3.5-5.1); VBG pH 7.33 (7.32-7.42)
[2019-01-01 02:33] LABS: ALBUMIN 4.3 g/dL (3.5-5.0); ALKALINE PHOSPHATASE 90 U/L (38-126); BLOOD UREA NITROGEN 12 mg/dL (9-20); CHLORIDE 97 mmol/L (98-107); Calcium 9.4 mg/dL (8.4-10.2); Carbon Dioxide 24 mmol/L (22-30); Creatinine 1 1.07 mg/dL (0.66-1.25); Glucose 133 mg/dL (74-106); NT PRO BNP 474 pg/mL (0-900); Potassium 4.3 mmol/L (3.5-5.1); SGOT/AST 30 U/L (17-59); SGPT/ALT 19 U/L (0-50); SODIUM 134 mmol/L (137-145); Total Protein 7.4 g/dL (6.3-8.2)
[2019-01-01] MEDS ORDERED: ROCEPHIN 1 Gm-D5w 50 ml Bag** 1 G/50 ML IVPB IV STA (02:44)
[2019-01-01] MEDS ORDERED: ROCEPHIN 1 Gm-D5w 50 ml Bag** 1 G/50 ML IVPB IV ONE (02:47)
[2019-01-01 03:39] LABS: INFLUENZA A NEGATIVE (NEGATIVE); INFLUENZA B NEGATIVE (NEGATIVE); RESPIRATORY SYNCTIAL VIRUS NEGATIVE (Negative)
[2019-01-01 04:36] LABS: Appearance CLEAR (CLEAR); Bilirubin NEGATIVE (NEGATIVE); Blood NEGATIVE Ery/ul (0-5); Glucose NEGATIVE (NEGATIVE); Ketones TRACE (NEGATIVE); Leukocyte Esterase NEGATIVE (NEGATIVE); Mucus SLIGHT /HPF (NEGATIVE); Nitrite NEGATIVE (NEGATIVE); Protein,Urine Dip NEGATIVE (Negative); Specific Gravity 1.017 (1.005-1.025); Urobilinogen NEGATIVE mg/dL (0-1)
[2019-01-01 04:38] LABS: Bacteria NONE SEEN /HPF (NEGATIVE)
[2019-01-01 05:20] VITALS: PULSE 89
[2019-01-01] MEDS ORDERED: Fortaz/Tazicef 1 GM** 1 G in Dextrose 5%/Water IV Soln. 100ML PLUS BAG 100 ML IV SCH (06:00)
[2019-01-01] MEDS ORDERED: BABY ASPIRIN 81 MG CHEW PO ONE (06:00)
[2019-01-01 06:15] VITALS: BP 149/87; O2SAT 95
[2019-01-01] MEDS ORDERED: Zithromax 250 MG TABLET PO ONE (06:22)
[2019-01-01] MEDS ORDERED: Zithromax 250 MG TABLET ONE (06:23)
--- NOTE | 2019-01-01 10:09 | XRAY ---
Indication: Productive cough and fever. COPD. Elevated d-dimer. Multiple contiguous axial images obtained through the chest using 80 cc Isovue 370 contrast and PE protocol. Comparison: November 20, 2017. There is satisfactory opacification of the pulmonary arteries to include the lobar and segmental branches. Again no filling defect or pulmonary embolus. Heart is not enlarged. Aorta remains mildly atherosclerotic without aneurysm/dissection. Stable prominent subcarinal node and moderate sized hiatal hernia with partial intrathoracic stomach. Examination of the lung parenchyma again demonstrates extensive pulmonary emphysema, scattered fibrosis/scarring, and right upper lobe calcified granuloma. Again bilateral dependent atelectasis, less than before. New patchy interstitial alveolar opacities in the posterior left and right lower lobes superiorly, probably pneumonitis. No consolidation or effusion. Bony thorax intact again with mild degenerative changes throughout the spine. Limited upper abdomen again demonstrates incompletely visualized left renal cysts. Impression: 1. Again negative pulmonary embolus. 2. New patchy bilateral lower lobe interstitial alveolar opacities, probable pneumonitis. Correlate clinically. 3. Stable pulmonary emphysema, fibrosis/scarring, prominent subcarinal node, moderate size hiatal hernia with partial intrathoracic stomach, and left renal cysts. Comment: Preliminary interpretation was made by [facility]. No discrepancy. CTDI 10.00
--- NOTE | 2019-01-01 10:12 | XRAY ---
Indication: Short of breath. Comparison: July 11, 2018. Portable chest again demonstrates COPD with scattered fibrosis/scarring. No focal infiltrate, consolidation, or large effusion. Heart is not enlarged again with previous documented hiatal hernia. Bony thorax intact again with mild osteopenia and degenerative changes. Impression: Stable nonacute chest with chronic features.
== END 2019-01-01 07:15 | disposition short-term general hospital (02) ==
LOC: ED 01:45
DX: J44.1 Chronic obstructive pulmonary disease with (acute) exacerbation (principal); R06.02 Shortness of breath; R79.1 Abnormal coagulation profile; R50.9 Fever, unspecified
CPT/HCPCS: 36000; 36415; 71045; 71260; 80053; 81001; 82805; 83605; 83880; 84484; 85025; 85379; 87040; 87631; 87651; 93005; 93041; 94150; 94640; 96360; 96361; 96365; 96374; 96375; 99285; J0696; J2930; A9270-GY

== ENCOUNTER 2021-04-21 13:36 | Observation (INO) | payer OTHER ==
[2021-04-21] MEDS ORDERED: Sodium Chloride 0.9% 1000 ML 1,000 ML IV STA (13:59)
[2021-04-21 14:10] LABS: Absolute Neutrophil Ct (ANC) 5.44 (1.4-6.9); BASOPHIL % 4.3 % (0.0-0.4); Basophil (Absolute #) 0.34 (0-0.4); Eosinophil % 0.1 % (0.00-5.0); Eosinophil (Absolute #) 0.01 (0-0.5); Hematocrit 54.5 % (42-50); Lymphocyte (Absolute #) 1.01 (1.0-4.6); Lymphocytes % 12.6 % (24.0-44.0); Mean Cell Volume 89.9 fl (78-100); Mean Corpuscular Hemoglobin 29.7 pg (26-32); Monocyte (Absolute #) 1.19 (0.0-1.3); Monocytes % 14.9 % (0.0-12.0); Neutrophil % 68.1 % (36.0-66.0); Platelet Count 198 K/mm3 (150-450); Red Blood Count 6.06 M/mm3 (4.1-5.6); Red Cell Distribution Width 13.8 % (11.5-14.0)
[2021-04-21 14:30] LABS: ALBUMIN 4.2 g/dL (3.5-5.0); ANION GAP 17.3 MEQ/L (5-15); BILIRUBIN,TOTAL 0.6 mg/dL (0.2-1.3); Calcium 9.4 mg/dL (8.4-10.2); Creatinine 1 1.43 mg/dL (0.66-1.25); EST GLOMERULAR FILTRATION RATE 51.1 ML/MIN; Potassium 4.3 mmol/L (3.5-5.1); Total Protein 7.3 g/dL (6.3-8.2)
[2021-04-21] MEDS ORDERED: Sodium Chloride 0.9% 1000 ML 1,000 ML ONE (14:30)
--- NOTE | 2021-04-21 16:07 | ERPHSYRPT ---
- History of Present Illness Time Seen by Provider: 04/21/21 13:39 Source: patient Exam Limitations: no limitations Patient Subjective Stated Complaint: fever Triage Nursing Assessment: Patient brought back to ED via w/c and transferred to bed. Patient A+O X3. Patient's skin pink, warm and dry. Patient complains of fever, diarrhea, cough, fatigue, SOB, Bodyaches for 2 weeks. Lungs noted to have rhonci throughout. Physician History: 75 years old male presented in the ER with 3 weeks history of generalized weakness fatigue with low-grade fever chills, loose stool, nausea and decreased oral intake. Feeling weak tired and dehydrated. Denies any chest pain but cough with some shortness of breath at times. Has been using [id number] medication with no significant relief. Patient is tachycardic on presentation and was hypoxic with oxygen saturation dropping to 87/88%, placed on 2 L and started to improve. Timing/Duration: week(s), intermittent, gradual onset, worse Fever Severity: moderate Fever Therapy ANIMAL CARETAKER: Acetaminophen Associated Symptoms: cough, headache, muscle aches, nausea/vomiting, rhinorrhea, shortness of breath, sore throat, weakness Allergies/Adverse Reactions: Penicillins Allergy (Mild, Verified 04/21/21 13:51) Home Medications: Albuterol 2 mg/5 ml Syrup [Ventolin Syrup 2 mg/5 ml] 1 neb IH Q4HPRN PRN 01/28/17 [History] Albuterol Sulfate [Proair Hfa] 2 puff IN Q6H PRN 01/01/19 [History] Hx Tetanus, Diphtheria Vaccination/Date Given: Yes Hx Influenza Vaccination/Date Given: Yes Hx Pneumococcal Vaccination/Date Given: Yes Immunizations Up to Date: Yes Travel Risk - International Travel Have you traveled outside of the country in past 3 weeks: No - Coronavirus Screening Are you exhibiting any of the following symptoms?: Yes Symptoms: Fever, Cough: New Onset, Shortness of Breath, Vomiting/Diarrhea, Headaches/Body Aches/Fatigue Close contact with a COVID-19 positive Pt in past 14-21 Days: No - Vaccine Status Have you recieved a Covid-19 vaccination: No - Review of Systems Constitutional: Fever, Chills, Fatigue, Weakness Eyes: No Symptoms Ears, Nose, & Throat: Nose Congestion, Throat Pain Respiratory: Cough Cardiac: Palpitations Abdominal/Gastrointestinal: Nausea, Diarrhea Genitourinary Symptoms: No Symptoms Musculoskeletal: Myalgias Skin: No Symptoms Neurological: Headache Psychological: No Symptoms Endocrine: No Symptoms Hematologic/Lymphatic: No Symptoms Immunological/Allergic: No Symptoms - Past Medical History Pertinent Past Medical History: Yes Neurological History: Stroke, Other ENT History: Other Cardiac History: Hypertension Respiratory History: Bronchitis, COPD, Pneumonia Endocrine Medical History: No Pertinent History Musculoskeletal History: Arthritis GI Medical History: Colorectal Cancer, GERD, Polyps History: No Pertinent History Psycho-Social History: Anxiety Male Reproductive Disorders: No Pertinent History Other Medical History: [place] Palsy - Past Surgical History Past Surgical History: Yes Neuro Surgical History: No Pertinent History Cardiac: No Pertinent History Respiratory: Other Gastrointestinal: Hernia Repair Genitourinary: No Pertinent History Musculoskeletal: No Pertinent History Male Surgical History: No Pertinent History Other Surgical History: collapsed lung - Social History Smoking Status: Former smoker Exposure to second hand smoke: No Drug Use: none Patient Lives Alone: No - Nursing Vital Signs Nursing Vital Signs: Initial Vital Signs Temperature 98.0 F 04/21/21 13:52 Pulse Rate 110 H 04/21/21 13:52 Respiratory Rate 28 H 04/21/21 13:52 O2 Sat by Pulse Oximetry 88 L 04/21/21 13:52 Pain Scale Pain Intensity 0 - Physical Exam General Appearance: no apparent distress, alert, anxiety Eye Exam: PERRL/EOMI, eyes nml inspection ENT Exam: no apparent trauma, hearing grossly normal, pharyngeal erythema Neck Exam: normal inspection, non-tender, supple, full range of motion Respiratory Exam: decreased air movement, wheezing Cardiovascular/Chest Exam: normal heart sounds, regular rate/rhythm Gastrointestinal/Abdominal Exam: soft, non tender, no distention Extremity Exam: non-tender, normal range of motion, normal inspection Neurologic Exam: alert, oriented x 3, cooperative, wet end operator II-XII nml as tested Skin Exam: normal color SpO2 Interpretation: hypoxic SpO2: 88 O2 Delivery: Nasal Cannula Ordered Tests: Active Orders 24 hr Category Date Time Status Utility Assembler STAT Care 04/21/21 14:00 Active EKG-ER Only STAT Care 04/21/21 13:59 Active IV Insertion STAT Care 04/21/21 13:59 Active Oxygen-ED Only Nasal Cannula 2 lpm Care 04/21/21 13:59 Active CHEST 1 VIEW (PORTABLE) Stat Exams 04/21/21 13:59 Taken BLOOD CULTURE Stat Lab 04/21/21 14:20 Received CBC W DIFF Stat Lab 04/21/21 14:00 Completed CMP Stat Lab 04/21/21 14:00 Completed D-DIMER QUANTITATIVE Stat Lab 04/21/21 18:25 Ordered LIPASE Stat Lab 04/21/21 14:00 Completed Lactic Acid Stat Lab 04/21/21 14:00 Ordered NT PRO BNP Stat Lab 04/21/21 14:00 Completed TROPONIN Q3H Lab 04/21/21 14:00 Completed TROPONIN Q3H Lab 04/21/21 17:04 Completed TROPONIN Q3H Lab 04/21/21 20:00 Ordered TROPONIN Q3H Lab 04/21/21 23:00 Ordered TROPONIN Q3H Lab 04/22/21 02:00 Ordered UA W/RFX UR CULTURE Stat Lab 04/21/21 13:59 Ordered Transfer Order Routine Transfer 04/21/21 Ordered Medication Summary Generic Name Dose Route Start Last Admin Trade Name Freq PRN Reason Stop Dose Admin Remdesivir 200 mg/ Sodium 250 mls @ 125 mls/hr 04/21/21 18:25 Chloride IV 04/21/21 20:24 ONCE ONE Discontinued Medications Generic Name Dose Route Start Last Admin Trade Name Freq PRN Reason Stop Dose Admin Dexamethasone Sodium Phosphate 6 mg 04/21/21 16:12 04/21/21 17:47 Decadron 10mg Inj. IV 04/21/21 16:13 6 mg STAT ONE Administration Dexamethasone Sodium Phosphate Confirm 04/21/21 17:45 Decadron 10mg Inj. Administered 04/21/21 17:46 Dose 10 mg .ROUTE .STK-MED ONE Sodium Chloride 1,000 mls @ 999 mls/hr 04/21/21 13:59 04/21/21 17:22 Sodium Chloride 0.9% 1000 Ml IV 04/21/21 14:59 Infused .Q1H1M STA Infusion Sodium Chloride Confirm 04/21/21 14:30 Sodium Chloride 0.9% 1000 Ml Administered 04/21/21 14:31 Dose 1,000 mls @ ud .ROUTE .STK-MED ONE Levofloxacin/Dextrose 500 mg in 100 mls @ 100 mls/hr 04/21/21 16:08 04/21/21 17:47 Levofloxacin 500mg/100ml D5w IV 04/21/21 17:07 100 mls/hr STAT STA 100 mls/hr Administration Levofloxacin/Dextrose Confirm 04/21/21 17:45 Levofloxacin 500mg/100ml D5w Administered 04/21/21 17:46 Dose 500 mg in 100 mls @ ud IV .K-MED ONE Lab/Rad Data: Laboratory Result Diagrams 04/21/21 14:00 04/21/21 14:00 Laboratory Results 04/21/21 04/21/21 04/21/21 Range/Units 17:11 17:04 14:00 WBC (4.0-10.5) K/mm3 RBC (4.1-5.6) M/mm3 Hgb (12.5-18.0) gm/dl Hct (42-50) % MCV (78-100) fl MCH (26-32) pg MCHC (32-36) g/dl RDW (11.5-14.0) % Plt Count (150-450) K/mm3 MPV (7.5-11.0) fl Gran % (36.0-66.0) % Eos # (Auto) (0-0.5) Absolute Lymphs (auto) (1.0-4.6) Absolute Monos (auto) (0.0-1.3) Lymphocytes % (24.0-44.0) % Monocytes % (0.0-12.0) % Eosinophils % (0.00-5.0) % Basophils % (0.0-0.4) % Absolute Granulocytes (1.4-6.9) Basophils # (0-0.4) Sodium (137-145) mmol/L Potassium (3.5-5.1) mmol/L Chloride (98-107) mmol/L Carbon Dioxide (22-30) mmol/L Anion Gap (5-15) MEQ/L BUN (9-20) mg/dL Creatinine (0.66-1.25) mg/dL Estimated GFR ML/MIN Glucose (74-106) mg/dL Calcium (8.4-10.2) mg/dL Total Bilirubin (0.2-1.3) mg/dL AST (17-59) U/L ALT (0-50) U/L Alkaline Phosphatase (38-126) U/L Troponin I < 0.012 (0.000-0.034) ng/mL NT-Pro-B Natriuret Pep (0-1800) pg/mL Serum Total Protein (6.3-8.2) g/dL Albumin (3.5-5.0) g/dL Lipase 77 (23-300) U/L SARS-CoV-2 (PCR) POSITIVE A (NEGATIVE) 04/21/21 04/21/21 04/21/21 Range/Units 14:00 14:00 14:00 WBC 8.0 (4.0-10.5) K/mm3 RBC 6.06 H (4.1-5.6) M/mm3 Hgb 18.0 (12.5-18.0) gm/dl Hct 54.5 H (42-50) % MCV 89.9 (78-100) fl MCH 29.7 (26-32) pg MCHC 33.0 (32-36) g/dl RDW 13.8 (11.5-14.0) % Plt Count 198 (150-450) K/mm3 MPV 12.0 H (7.5-11.0) fl Gran % 68.1 H (36.0-66.0) % Eos # (Auto) 0.01 (0-0.5) Absolute Lymphs (auto) 1.01 (1.0-4.6) Absolute Monos (auto) 1.19 (0.0-1.3) Lymphocytes % 12.6 L (24.0-44.0) % Monocytes % 14.9 H (0.0-12.0) % Eosinophils % 0.1 (0.00-5.0) % Basophils % 4.3 (0.0-0.4) % Absolute Granulocytes 5.44 (1.4-6.9) Basophils # 0.34 (0-0.4) Sodium 143 (137-145) mmol/L Potassium 4.3 (3.5-5.1) mmol/L Chloride 105 (98-107) mmol/L Carbon Dioxide 24 (22-30) mmol/L Anion Gap 17.3 H (5-15) MEQ/L BUN 37 H (9-20) mg/dL Creatinine 1.43 H (0.66-1.25) mg/dL Estimated GFR 51.1 ML/MIN Glucose 119 H (74-106) mg/dL Calcium 9.4 (8.4-10.2) mg/dL Total Bilirubin 0.60 (0.2-1.3) mg/dL AST 57 (17-59) U/L ALT 33 (0-50) U/L Alkaline Phosphatase 72 (38-126) U/L Troponin I < 0.012 (0.000-0.034) ng/mL NT-Pro-B Natriuret Pep 799 (0-1800) pg/mL Serum Total Protein 7.3 (6.3-8.2) g/dL Albumin 4.2 (3.5-5.0) g/dL Lipase (23-300) U/L SARS-CoV-2 (PCR) (NEGATIVE) - Progress Progress: improved, re-examined Progress Note: 04/21/21 18:26 75 years old is evaluated for Covid-like symptoms. Is given fluid bolus and placed on 2 L oxygen as patient was hypoxic. Given a dose of Decadron. Chest x-ray did not show any focal infiltrative process but questionable airspace disease. Given a dose of Levaquin as well. Has normal white count, chemistry profile showed acute on chronic kidney disease consistent with dehydration from gastroenteritis. Discussed with and patient is admitted. Later on his Covid test come back positive, discussed with Dr. Manley, reviewed history, work-up. Recommended given remdesivir and obtaining D-dimer and patient is being admitted to Covid floor. Discussed with .: Oscar, Other (Dr. Manley) Will see patient in: hospital (observation) Counseled pt/family regarding: lab results, diagnosis, rad results - Departure Departure Disposition: Observation Clinical Impression: Acute respiratory failure with hypoxia, COVID-19 virus detected, Acute renal failure Condition: Stable Critical Care Time: No Referrals: HOSPITAL,'S [Primary Care Provider] -
[2021-04-21] MEDS ORDERED: Levofloxacin 500MG/100ML D5W 500 MG/100 ML BAG IV STA (16:08)
[2021-04-21] MEDS ORDERED: DECADRON 10MG INJ. IV ONE (16:12)
[2021-04-21] MEDS ORDERED: Levofloxacin 500MG/100ML D5W 500 MG/100 ML BAG IV ONE (17:45)
[2021-04-21] MEDS ORDERED: DECADRON 10MG INJ. ONE (17:45)
[2021-04-21] MEDS ORDERED: REMDESIVIR 200 MG in Sodium Chloride 0.9% 250 ML 250 ML IV ONE (18:25)
--- NOTE | 2021-04-21 18:39 | XRAY ---
Indication: Fever, cough, hoarseness, and diarrhea. Comparison: January 01, 2019. Portable chest again demonstrates COPD and minimal left base fibrosis/scarring. No focal infiltrate, consolidation, or large effusion. Bony thorax intact again with mild osteopenia, degenerative changes, and old left 3 rib fracture. Impression: Continued nonacute chest with chronic features.
[2021-04-21] MEDS ORDERED: TYLENOL 325 MG PO PRN (19:44)
[2021-04-21] MEDS ORDERED: DUONEB 0.5-3 MG/3 ml Neb IH SCH (19:44)
[2021-04-21] MEDS ORDERED: Sodium Chloride 0.9% 1000 ML 1,000 ML IV SCH (19:44)
[2021-04-21] MEDS ORDERED: Zofran 4 MG/2 ML VIAL IV PRN (19:44)
[2021-04-21] MEDS ORDERED: TYLENOL EXTRA STRENGTH 500 MG PO PRN (21:37)
[2021-04-21] MEDS ORDERED: Ativan 1 MG PO PRN (21:38)
[2021-04-21] MEDS ORDERED: Decadron 4 MG INJ IV SCH (22:00)
[2021-04-21] MEDS: VENTOLIN COMMON CANISTER IH SCH (23:56)
[2021-04-22] MEDS ORDERED: ENOXAPARIN SODIUM SQ SCH ×3 (00:20→22:00)
[2021-04-22 06:03] LABS: Hemoglobin 15.7 gm/dl (12.5-18.0); Mean Cell Volume 91.4 fl (78-100); Mean Corpuscular Hemoglobin 29.3 pg (26-32); Mean Platelet Volume 12.1 fl (7.5-11.0); Platelet Count 179 K/mm3 (150-450); Red Blood Count 5.36 M/mm3 (4.1-5.6); Red Cell Distribution Width 13.5 % (11.5-14.0)
[2021-04-22 06:26] LABS: ALBUMIN 3.5 g/dL (3.5-5.0); ALKALINE PHOSPHATASE 55 U/L (38-126); ANION GAP 14.1 MEQ/L (5-15); BLOOD UREA NITROGEN 32 mg/dL (9-20); CHLORIDE 112 mmol/L (98-107); Calcium 8.7 mg/dL (8.4-10.2); Carbon Dioxide 22 mmol/L (22-30); Creatinine 1 0.97 mg/dL (0.66-1.25); EST GLOMERULAR FILTRATION RATE > 60.0 ML/MIN; Glucose 130 mg/dL (74-106); SGOT/AST 43 U/L (17-59); SGPT/ALT 29 U/L (0-50); SODIUM 143 mmol/L (137-145); Total Protein 6.4 g/dL (6.3-8.2)
[2021-04-22] MEDS ORDERED: Advair Hfa 230/21 Mcg COMMON CANISTER IH SCH (07:00)
[2021-04-22 07:23] LABS: Basophil 1 % (0.0-1.0); Lymphocytes 26 % (24-44); Monocyte 6 % (0.0-12.0); Neutrophils 67 % (36.-66.); Platelet Estimate NORMAL (NORMAL); Total Cells Counted 100
[2021-04-22] MEDS: VENTOLIN COMMON CANISTER IH SCH ×2 (07:33→11:24)
--- NOTE | 2021-04-22 08:42 | XRAY ---
Indication: Short of breath. Elevated d-dimer. Multiple contiguous axial images obtained through the chest using 80 cc Isovue 370 contrast and PE protocol. Comparison: January 01, 2019. There is good opacification of the pulmonary arteries to include the lobar and segmental branches. No pulmonary embolus. Heart not enlarged. Aorta remains mildly arteriosclerotic without aneurysm/dissection. No pathologic mediastinal/hilar lymphadenopathy. Stable moderate-sized hiatal hernia with partial intrathoracic stomach. Lungs again demonstrate extensive diffuse pulmonary edema, scattered fibrosis/scarring, and tiny right upper lobe calcified granuloma. No suspicious pulmonary mass, infiltrate, or effusion. Bony thorax intact again with mild degenerative changes throughout the spine. Limited upper abdomen again demonstrates left renal cysts. Impression: 1. Continued negative pulmonary embolus. 2. Stable diffuse pulmonary emphysema, hiatal hernia with partial intrathoracic stomach, chronic bony findings, and left renal cysts. Comment: Preliminary interpretation made by C. No critical discrepancy.
[2021-04-22] MEDS: PROTONIX 40 MG IV IV SCH (09:14)
[2021-04-22] MEDS ORDERED: Levofloxacin 500MG/100ML D5W 500 MG/100 ML BAG IV SCH (10:00)
[2021-04-22] MEDS: WIXELA 500-50 INHUB IH SCH ×2 (11:25→19:50)
[2021-04-22] MEDS: VENTOLIN COMMON CANISTER IH PRN (19:50)
[2021-04-22] MEDS: Sodium Chloride 0.9% 1000 ML 1,000 ML IV SCH (19:53)
[2021-04-22] MEDS ORDERED: DECADRON 10MG INJ. IV SCH (22:00)
[2021-04-22] MEDS ORDERED: REMDESIVIR 100 MG in Sodium Chloride 0.9% 100 ML BAG 100 ML IV SCH (22:00)
[2021-04-23 01:51] LABS: Amourphous Crystal FEW /HPF (NEGATIVE); Appearance SLIGHTLY CLOUDY (CLEAR); Bilirubin NEGATIVE (NEGATIVE); Blood NEGATIVE Ery/ul (0-5); Glucose NEGATIVE (NEGATIVE); Ketones NEGATIVE (NEGATIVE); Leukocyte Esterase NEGATIVE (NEGATIVE); Mucus SLIGHT /HPF (NEGATIVE); Nitrite NEGATIVE (NEGATIVE); Protein,Urine Dip NEGATIVE (Negative); Specific Gravity 1.027 (1.005-1.025); Urobilinogen NEGATIVE mg/dL (0-1); WBC 0-2 /HPF (0-5)
[2021-04-23 02:06] LABS: Bacteria NONE SEEN /HPF (NEGATIVE)
[2021-04-23 05:52] LABS: Absolute Neutrophil Ct (ANC) 5.07 (1.4-6.9); BASOPHIL % 3.2 % (0.0-0.4); Basophil (Absolute #) 0.19 (0-0.4); Eosinophil (Absolute #) 0 (0-0.5); Hematocrit 47.1 % (42-50); Hemoglobin 15.2 gm/dl (12.5-18.0); Lymphocyte (Absolute #) 0.46 (1.0-4.6); Lymphocytes % 7.7 % (24.0-44.0); Mean Cell Volume 90.8 fl (78-100); Mean Corpuscular Hemoglobin 29.3 pg (26-32); Mean Corpuscular Hgb Concent. 32.3 g/dl (32-36); Mean Platelet Volume 13.1 fl (7.5-11.0); Monocyte (Absolute #) 0.26 (0.0-1.3); Monocytes % 4.3 % (0.0-12.0); Neutrophil % 84.8 % (36.0-66.0); Platelet Count 216 K/mm3 (150-450); Red Blood Count 5.19 M/mm3 (4.1-5.6); Red Cell Distribution Width 13.5 % (11.5-14.0)
[2021-04-23 06:08] LABS: ALBUMIN 3.2 g/dL (3.5-5.0); ALKALINE PHOSPHATASE 49 U/L (38-126); ANION GAP 14.8 MEQ/L (5-15); BLOOD UREA NITROGEN 37 mg/dL (9-20); CHLORIDE 111 mmol/L (98-107); Calcium 8.9 mg/dL (8.4-10.2); Carbon Dioxide 22 mmol/L (22-30); Creatinine 1 1.03 mg/dL (0.66-1.25); EST GLOMERULAR FILTRATION RATE > 60.0 ML/MIN; Glucose 129 mg/dL (74-106); Potassium 4.6 mmol/L (3.5-5.1); SGOT/AST 40 U/L (17-59); SGPT/ALT 31 U/L (0-50); SODIUM 143 mmol/L (137-145); Total Protein 5.9 g/dL (6.3-8.2)
[2021-04-23] MEDS: Sodium Chloride 0.9% 1000 ML 1,000 ML IV SCH (06:47)
[2021-04-23 07:39] LABS: Slide Review 1 YES
[2021-04-23] MEDS: PROTONIX 40 MG IV IV SCH (09:18)
[2021-04-23] MEDS: WIXELA 500-50 INHUB IH SCH (09:32)
[2021-04-23] MEDS: VENTOLIN COMMON CANISTER IH PRN (10:04)
[2021-04-23 11:52] VITALS: BP 147/79
[2021-04-23 14:27] VITALS: O2SAT 97
[2021-04-23 16:08] VITALS: PULSE 88
--- NOTE | 2021-04-28 10:47 | SSS ---
ADMISSION DIAGNOSIS: COVID pneumonia. DISCHARGE DIAGNOSIS: COVID PNEUMONIA. HISTORY: The patient was admitted with some shortness of breath, cough and severe achiness. He improved rapidly over two days. He required no narcotics for his pain. He required 3 liters of oxygen and the last day he was on 2 liters. Overnight he stayed 97% on 2 liters. He denied any nausea or vomiting. He denied any severe pain. MEDICATIONS: Albuterol inhaler, Tylenol for pain. ALLERGIES: PENICILLIN. REVIEW OF SYSTEMS: HEENT: Slightly hard of hearing. CHEST: No shortness of breath except on exertion. He has history of some asthma. ABDOMEN: No nausea or vomiting. EXTREMITIES: Arthritis in the knees. PHYSICAL EXAMINATION: The patient is an appropriately aged 75 year-old white male who is pleasant. HEENT: Normal. NECK: Supple without adenopathy. CHEST: Clear. CVS: No murmurs or gallops. ABDOMEN: Soft. No masses or organomegaly. HOSPITAL COURSE: He was admitted on IV fluids because he had not been drinking. He was a little nauseated and that was given for a liter and then it was dropped off. He was given Lovenox, Decadron 8, Ativan if needed and his inhaler. He felt well and was discharged home on 2 liters oxygen nasal cannula and to follow up with his regular doctor. PROGNOSIS: Good.
== END 2021-04-23 17:20 | disposition home or self-care (01) ==
LOC: ED 13:36 → MED SURG 19:30
PROVIDERS: ADMIT Family Medicine; ATTEND Family Medicine
DX: U07.1 COVID-19 (principal); J12.82 Pneumonia due to coronavirus disease 2019; R53.1 Weakness; R51.9 Headache, unspecified; R11.0 Nausea; J02.9 Acute pharyngitis, unspecified; Z79.899 Other long term (current) drug therapy; I10 Essential (primary) hypertension; E86.0 Dehydration; Z20.822 Contact with and (suspected) exposure to COVID-19; J44.9 Chronic obstructive pulmonary disease, unspecified
CPT/HCPCS: 36000; 36415; 71045; 71260; 80053; 81001; 83605; 83690; 83880; 84484; 85025; 85379; 87040; 93005; 93041; 93268; 94640; 94667; 94668; 94762; 96365; 96374; 99285; G0378; U0003; J1100; J1650; J1956; A9270-GY

== ENCOUNTER 2021-07-22 16:13 | Emergency (ER) | payer MEDICARE, OTHER ==
--- NOTE | 2021-07-22 16:27 | ERPHSYRPT ---
- History of Present Illness Time Seen by Provider: 07/22/21 16:27 Source: patient Exam Limitations: no limitations Physician History: This is a 75-year-old white male who presents with several day history of initially coughing because of food getting caught in his throat followed by several subsequent days of coughing. He had what he thought was low-grade fever. He denies chest pain. He does have a significant cardiac history. Patient also has a history of recurrent pneumonias, COPD and emphysema and bronchitis. Because of his coughing episodes, he was also concerned that he may have had another spontaneous pneumothorax which she has had in the past. Sympt oms are somewhat similar. Patient is not aware of any exposure to anyone with COVID-19 infection or other illnesses. He denies abdominal pain. He denies nausea vomiting and diarrhea. Timing/Duration: today Severity: moderate Associated Symptoms: shortness of breath, cough, fever (Not measured), No chest pain (Mild) Allergies/Adverse Reactions: Penicillins Allergy (Mild, Verified 07/22/21 16:37) Home Medications: Albuterol 2 mg/5 ml Syrup [Ventolin Syrup 2 mg/5 ml] 1 neb IH Q4HPRN PRN 01/28/17 [History] Albuterol Sulfate [Proair Hfa] 2 puff IN Q6H PRN 01/01/19 [History] Hx Tetanus, Diphtheria Vaccination/Date Given: Yes Hx Influenza Vaccination/Date Given: Yes Hx Pneumococcal Vaccination/Date Given: Yes Travel Risk - International Travel Have you traveled outside of the country in past 3 weeks: No - Coronavirus Screening Are you exhibiting any of the following symptoms?: Yes Symptoms: Fever, Cough: New Onset, Shortness of Breath - Vaccine Status Have you recieved a Covid-19 vaccination: No - Review of Systems Constitutional: Fever (Subjective) Eyes: No Symptoms Ears, Nose, & Throat: No Symptoms Respiratory: Cough, Dyspnea (Mild) Cardiac: No Symptoms Abdominal/Gastrointestinal: No Symptoms Genitourinary Symptoms: No Symptoms Musculoskeletal: No Symptoms Skin: No Symptoms Neurological: No Symptoms Psychological: No Symptoms Endocrine: No Symptoms Hematologic/Lymphatic: No Symptoms Immunological/Allergic: No Symptoms All Other Systems: Reviewed and Negative - Past Medical History Pertinent Past Medical History: Yes Neurological History: Stroke, Other ENT History: Other Cardiac History: Hypertension, Myocardial Infarction (DE) Respiratory History: Bronchitis, COPD, Pneumonia Endocrine Medical History: No Pertinent History Musculoskeletal History: Arthritis GI Medical History: Colorectal Cancer, GERD, Polyps History: No Pertinent History Psycho-Social History: Anxiety Male Reproductive Disorders: No Pertinent History Other Medical History: [place] Palsy - Past Surgical History Past Surgical History: Yes Neuro Surgical History: No Pertinent History Cardiac: No Pertinent History Respiratory: Other Gastrointestinal: Hernia Repair Genitourinary: No Pertinent History Musculoskeletal: No Pertinent History Male Surgical History: No Pertinent History Other Surgical History: collapsed lung - Social History Smoking Status: Former smoker Exposure to second hand smoke: No Drug Use: none Patient Lives Alone: No - Nursing Vital Signs Nursing Vital Signs: Initial Vital Signs Temperature 99.9 F 07/22/21 16:25 Pulse Rate 105 H 07/22/21 16:25 Respiratory Rate 22 07/22/21 16:25 Blood Pressure 189/102 07/22/21 16:25 O2 Sat by Pulse Oximetry 95 07/22/21 16:25 Pain Scale Pain Intensity 4 - Physical Exam General Appearance: no apparent distress, alert, anxiety, thin Eye Exam: PERRL/EOMI, eyes nml inspection Ears, Nose, Throat Exam: normal ENT inspection, moist mucous membranes Neck Exam: normal inspection, non-tender, supple, full range of motion Respiratory Exam: normal breath sounds, lungs clear, airway intact, No chest tenderness, No respiratory distress Cardiovascular Exam: regular rate/rhythm, normal heart sounds, normal peripheral pulses Gastrointestinal/Abdomen Exam: soft, normal bowel sounds, No tenderness Rectal Exam: not done Back Exam: normal inspection, normal range of motion, No CVA tenderness, No vertebral tenderness Extremity Exam: normal inspection, normal range of motion, pelvis stable Neurologic Exam: alert, oriented x 3, cooperative, fox farmer II-XII nml as tested, normal mood/affect, nml cerebellar function, nml station & gait, sensation nml Skin Exam: normal color, warm, dry Lymphatic Exam: No adenopathy SpO2 Interpretation: normal O2 Delivery: Room Air - Course Nursing assessment & vital signs reviewed: Yes EKG Interpreted by Me: RATE (89), Sinus Rhythm, NORMAL AXIS, LAFB, NORMAL QRS, NORMAL ST-T, Other (When compared to EKG dated 04/21/2021 there is no significant changes other than a new prolonged AK interval. There is no evidence of any acute ischemic changes on today's EKG.) Ordered Tests: Active Orders 24 hr Category Date Time Status Director Outcomes STAT Care 07/22/21 16:44 Active EKG-ER Only STAT Care 07/22/21 16:43 Active Pulse Oximetry (ED) STAT Care 07/22/21 16:43 Active CHEST 1 VIEW (PORTABLE) Stat Exams 07/22/21 16:44 Completed CBC W DIFF Stat Lab 07/22/21 17:15 Completed CMP Stat Lab 07/22/21 17:15 Completed D-DIMER QUANTITATIVE Stat Lab 07/22/21 17:15 Completed INFLUENZA A+B ADITYA Stat Lab 07/22/21 17:29 Completed Manual Differential NC Stat Lab 07/22/21 17:15 Completed [place] Screen Stat Lab 07/22/21 17:15 Completed NT PRO BNP Stat Lab 07/22/21 17:15 Completed TROPONIN Q3H Lab 07/22/21 17:15 Completed TROPONIN Q3H Lab 07/22/21 19:45 Ordered TROPONIN Q3H Lab 07/22/21 22:45 Ordered TROPONIN Q3H Lab 07/23/21 01:45 Ordered TROPONIN Q3H Lab 07/23/21 04:45 Ordered Medication Summary Discontinued Medications Generic Name Dose Route Start Last Admin Trade Name Freq PRN Reason Stop Dose Admin Hydrocodone Bitart/Acetaminophen 10 ml 07/22/21 17:56 07/22/21 18:01 Hydrocodone/Acetaminophen 5 Ml Udcup PO 07/22/21 17:57 10 ml STAT STA Administration Hydrocodone Bitart/Acetaminophen Confirm 07/22/21 17:58 Hydrocodone/Acetaminophen 5 Ml Udcup Administered 07/22/21 17:59 Dose 5 ml .ROUTE .STK-MED ONE Hydrocodone Bitart/Acetaminophen Confirm 07/22/21 17:59 Hydrocodone/Acetaminophen 5 Ml Udcup Administered 07/22/21 18:00 Dose 5 ml .ROUTE .STK-MED ONE Methylprednisolone Sodium 0 mg 07/22/21 18:09 07/22/21 18:17 Succinate 125 mg/ Sterile IV 07/22/21 18:10 125 mg Water 2 ml STAT ONE Administration Ceftriaxone Sodium/Dextrose 1 g in 50 mls @ 100 mls/hr 07/22/21 18:09 07/22/21 18:17 Rocephin 1 Gm-D5w 50 Ml Bag IV 07/22/21 18:38 100 mls/hr STAT STA 100 mls/hr Administration Ceftriaxone Sodium/Dextrose Confirm 07/22/21 18:15 Rocephin 1 Gm-D5w 50 Ml Bag Administered 07/22/21 18:16 Dose 1 g in 50 mls @ ud IV .STK-MED ONE Methylprednisolone Sodium Succinate Confirm 07/22/21 18:15 Methylprednis Sod Succ 125 Mg/2 Ml Vial Administered 07/22/21 18:16 Dose 125 mg .ROUTE .STK-MED ONE Lab/Rad Data: Laboratory Result Diagrams 07/22/21 17:15 07/22/21 17:15 Laboratory Results 07/22/21 07/22/21 07/22/21 Range/Units 17:29 17:29 17:15 WBC (4.0-10.5) K/mm3 RBC (4.1-5.6) M/mm3 Hgb (12.5-18.0) gm/dl Hct (42-50) % MCV (78-100) fl MCH (26-32) pg MCHC (32-36) g/dl RDW (11.5-14.0) % Plt Count (150-450) K/mm3 MPV (7.5-11.0) fl D-Dimer (215-500) ng/mL Sodium (137-145) mmol/L Potassium (3.5-5.1) mmol/L Chloride (98-107) mmol/L Carbon Dioxide (22-30) mmol/L Anion Gap (5-15) MEQ/L BUN (9-20) mg/dL Creatinine (0.66-1.25) mg/dL Estimated GFR ML/MIN Glucose (74-106) mg/dL Calcium (8.4-10.2) mg/dL Total Bilirubin (0.2-1.3) mg/dL AST (17-59) U/L ALT (0-50) U/L Alkaline Phosphatase (38-126) U/L Troponin I (0.000-0.034) ng/mL NT-Pro-B Natriuret Pep (0-1800) pg/mL Serum Total Protein (6.3-8.2) g/dL Albumin (3.5-5.0) g/dL Monoscreen WEAKLY POSITIVE (Negative) Influenza Type A Ag NEGATIVE (NEGATIVE) Influenza Type B Ag NEGATIVE (NEGATIVE) Group A Strep Antibody NOT DETECTED (NEGATIVE) 07/22/21 07/22/21 07/22/21 Range/Units 17:15 17:15 17:15 WBC (4.0-10.5) K/mm3 RBC (4.1-5.6) M/mm3 Hgb (12.5-18.0) gm/dl Hct (42-50) % MCV (78-100) fl MCH (26-32) pg MCHC (32-36) g/dl RDW (11.5-14.0) % Plt Count (150-450) K/mm3 MPV (7.5-11.0) fl D-Dimer 578 H* (215-500) ng/mL Sodium 135 L (137-145) mmol/L Potassium 3.9 (3.5-5.1) mmol/L Chloride 102 (98-107) mmol/L Carbon Dioxide 28 (22-30) mmol/L Anion Gap 8.7 (5-15) MEQ/L BUN 9 (9-20) mg/dL Creatinine 1.02 (0.66-1.25) mg/dL Estimated GFR > 60.0 ML/MIN Glucose 93 (74-106) mg/dL Calcium 8.9 (8.4-10.2) mg/dL Total Bilirubin 0.90 (0.2-1.3) mg/dL AST 29 (17-59) U/L ALT 12 (0-50) U/L Alkaline Phosphatase 78 (38-126) U/L Troponin I < 0.012 (0.000-0.034) ng/mL NT-Pro-B Natriuret Pep 1380 (0-1800) pg/mL Serum Total Protein 5.6 L (6.3-8.2) g/dL Albumin 3.3 L (3.5-5.0) g/dL Monoscreen (Negative) Influenza Type A Ag (NEGATIVE) Influenza Type B Ag (NEGATIVE) Group A Strep Antibody (NEGATIVE) 07/22/21 Range/Units 17:15 WBC 9.3 (4.0-10.5) K/mm3 RBC 4.50 (4.1-5.6) M/mm3 Hgb 13.0 (12.5-18.0) gm/dl Hct 41.1 L (42-50) % MCV 91.3 (78-100) fl MCH 28.9 (26-32) pg MCHC 31.6 L (32-36) g/dl RDW 15.6 H (11.5-14.0) % Plt Count 311 (150-450) K/mm3 MPV 10.5 (7.5-11.0) fl D-Dimer (215-500) ng/mL Sodium (137-145) mmol/L Potassium (3.5-5.1) mmol/L Chloride (98-107) mmol/L Carbon Dioxide (22-30) mmol/L Anion Gap (5-15) MEQ/L BUN (9-20) mg/dL Creatinine (0.66-1.25) mg/dL Estimated GFR ML/MIN Glucose (74-106) mg/dL Calcium (8.4-10.2) mg/dL Total Bilirubin (0.2-1.3) mg/dL AST (17-59) U/L ALT (0-50) U/L Alkaline Phosphatase (38-126) U/L Troponin I (0.000-0.034) ng/mL NT-Pro-B Natriuret Pep (0-1800) pg/mL Serum Total Protein (6.3-8.2) g/dL Albumin (3.5-5.0) g/dL Monoscreen (Negative) Influenza Type A Ag (NEGATIVE) Influenza Type B Ag (NEGATIVE) Group A Strep Antibody (NEGATIVE) - Progress Progress: improved, re-examined Progress Note: 07/22/21 17:51 Chest x-ray shows a new subtle patchy bilateral airspace disease without co nsolidation/large effusion. Counseled pt/family regarding: lab results, diagnosis, need for follow-up, rad results - Departure Departure Disposition: Home Clinical Impression: Pneumonia Condition: Stable Critical Care Time: No Referrals: [facility]OSP[facility],'S [Primary Care Provider] - Follow up/PCP as directed Additional Instructions: Drink plenty of fluids. Take your medications as prescribed. Quarantine yourself until the results of your COVID-19 test returned. Prescriptions: Hydrocodone/Acetaminophen [Hydrocodone-Acetamn 7.5-325/15] 10 ml PO Q8H PRN PRN #120 ml MDD 30 ml PRN Reason: Cough Prednisone 10 mg [Deltasone 10 mg] 10 mg PO TID #12 tablet Azithromycin 250 mg [Zithromax 250 MG TABLET] 250 mg PO ZPACK #6 tablet
--- NOTE | 2021-07-22 17:03 | XRAY ---
Indication: Cough and congestion. Comparison: April 21, 2021. Portable chest again demonstrates COPD, left base fibrosis/scarring, and tiny right upper lobe costochondral granuloma. New subtle patchy bilateral airspace disease without consolidation/large effusion. Heart not enlarged. Bony thorax intact again with osteopenia and degenerative changes.
[2021-07-22 17:26] LABS: Hematocrit 41.1 % (42-50); Mean Cell Volume 91.3 fl (78-100); Mean Corpuscular Hemoglobin 28.9 pg (26-32); Mean Corpuscular Hgb Concent. 31.6 g/dl (32-36); Mean Platelet Volume 10.5 fl (7.5-11.0); Platelet Count 311 K/mm3 (150-450); Red Cell Distribution Width 15.6 % (11.5-14.0); White Blood Count 9.3 K/mm3 (4.0-10.5)
[2021-07-22] MEDS ORDERED: HYDROCODONE-ACETAMIN 2.5-108/5 ML SOLUTION PO STA (17:56)
[2021-07-22] MEDS ORDERED: HYDROCODONE-ACETAMIN 2.5-108/5 ML SOLUTION ONE ×2 (17:58→17:59)
[2021-07-22 18:06] LABS: ALBUMIN 3.3 g/dL (3.5-5.0); ALKALINE PHOSPHATASE 78 U/L (38-126); ANION GAP 8.7 MEQ/L (5-15); BLOOD UREA NITROGEN 9 mg/dL (9-20); CHLORIDE 102 mmol/L (98-107); Calcium 8.9 mg/dL (8.4-10.2); Carbon Dioxide 28 mmol/L (22-30); Creatinine 1 1.02 mg/dL (0.66-1.25); EST GLOMERULAR FILTRATION RATE > 60.0 ML/MIN; Glucose 93 mg/dL (74-106); NT PRO BNP 1380 pg/mL (0-1800); Potassium 3.9 mmol/L (3.5-5.1); SGOT/AST 29 U/L (17-59); SGPT/ALT 12 U/L (0-50); SODIUM 135 mmol/L (137-145); Total Protein 5.6 g/dL (6.3-8.2)
[2021-07-22 18:06] LABS: INFLUENZA A NEGATIVE (NEGATIVE); INFLUENZA B NEGATIVE (NEGATIVE)
[2021-07-22] MEDS ORDERED: ROCEPHIN 1 Gm-D5w 50 ml Bag** 1 G/50 ML IVPB IV STA (18:09)
[2021-07-22] MEDS ORDERED: solu-MEDROL 125 MG, Sterile H2O 10 ml 2 ML IV ONE ×2 (18:09)
[2021-07-22] MEDS ORDERED: ROCEPHIN 1 Gm-D5w 50 ml Bag** 1 G/50 ML IVPB IV ONE (18:15)
[2021-07-22] MEDS ORDERED: solu-MEDROL ONE (18:15)
[2021-07-22 19:15] VITALS: BP 126/65; PULSE 72; O2SAT 92
[2021-07-22 20:27] LABS: Eosinophil 4 % (0.00-3.0); Lymphocytes 18 % (24-44); Monocyte 5 % (0.0-12.0); Neutrophils 73 % (36.-66.); Platelet Estimate NORMAL (NORMAL); Total Cells Counted 100
== END 2021-07-22 19:38 | disposition home or self-care (01) ==
LOC: ED 16:13
DX: J18.9 Pneumonia, unspecified organism (principal); J42 Unspecified chronic bronchitis; I10 Essential (primary) hypertension; R05.9 Cough, unspecified; R06.00 Dyspnea, unspecified; Z79.891 Long term (current) use of opiate analgesic
CPT/HCPCS: 36000; 36415; 71045; 80053; 83880; 84484; 85025; 85379; 86308; 87400; 87651; 93005; 93041; 94760; 96374; 99284; U0003; J0696; J2930; A9270-GY